=== PATIENT | female | born 1955 | race Caucasian/White ===

== ENCOUNTER 2023-08-15 11:26 | Day surgery (SDC) | payer MEDICARE, OTHER, SELFPAY ==
[2023-08-08 07:41] VITALS: BMI 41.5
[2023-08-15] VITALS (12 sets, daily range): BP systolic 93–131; BP diastolic 55–85; PULSE 59–78; RESP 11–20; TEMP 35.8–36.4; O2SAT 95–99; BMI 41.5
--- NOTE | 2023-08-15 06:00 | DI.RAD.S_ITS ---
PROCEDURE: XR KNEE LT 1TO2V INDICATIONS: left total knee TECHNIQUE: 2 view(s) of the knee acquired. COMPARISON: None. FINDINGS: Bones: Patient is status post knee joint arthroplasty. Hardware components are in expected positions. Visualized bony structures are intact. Soft tissues: Overlying postoperative changes are noted. IMPRESSION: Expected appearance of knee arthroplasty. Dictated by: Senia Galeas M.D. on 08/15/2023 at 16:49 Approved by: Senia Galeas M.D. on 08/15/2023 at 16:49
[2023-08-15] MEDS: LACTATED RINGERS 1,000 ML 42 ML IV (12:15)
[2023-08-15] MEDS: ACETAMINOPHEN 325 MG TABLET 975 MG PO (12:16)
[2023-08-15] MEDS: PREGABALIN 75 MG CAPSULE PO (12:16)
[2023-08-15] MEDS: CELECOXIB 200 MG CAPSULE PO (12:17)
[2023-08-15] MEDS: VANCOMYCIN 1,000 MG/200 ML PIGGYBACK 200 MG IV (12:19)
--- NOTE | 2023-08-15 13:17 | P.OP_ITS ---
Operative Date/Time/Diagnoses Date of procedure: 08/15/23 Time of procedure: 13:20 Pre-op diagnosis: Severe left knee OA Post-op diagnosis: same Procedure & Clinicians Procedure: Left total knee arthroplasty Same procedure as scheduled: Yes Indications: The patient has had progressively worsening left knee pain with radiographic changes consistent with arthritis. Non-operative management has failed and the patient has requested total knee replacement. The risks, benefits and alternatives to surgery were discussed with the patient prior to proceeding. Risks discussed included, but were not limited to, failure to relieve pain, stiffness, infection, nerve damage, deep venous thrombosis, pulmonary embolism, stroke, coma, heart attack, permanent paralysis and , as well as the potential need for eventual revision of the prosthetic. Surgeon: Lisandra Quigley Cyber Legal Advisor: Nitish Vargas Anesthesia Type: General and Spinal Operative Notes Findings: Severe left knee OA, adequate stability, adequate bone Closure Type: primary Specimen(s): none sent Prosthetic devices, grafts, tissues, transplants, or devices: [employer]igley [employer] Nephew frank BCS 2 size 5 femur, size 3 tibia, size 32 by 7.5 patella, +10 poly Estimated Blood Loss (mL): 250 Blood products transfused: none Tourniquet time (min): 73 Procedure in detail: The patient was seen in the pre-operative area, where the patient identified the right knee as the operative site and this was marked with my initials. The patient received pre-operative antibiotics, and was taken to the operating room and placed on the operative table in the supine position. After satisfactory anesthesia, a time clock mechanic out was performed. The right leg was encircled with a tourniquet about the proximal thigh, and the leg was prepared from the toes to the tourniquet with ChloroPrep in the usual fashion and draped through sterile drapes. The leg was elevated and exsanguinated with Eschmark bandage and the tourniquet inflated to 300 mmHg pressure. She had a very large thigh and the tourniquet was noted to be inflating during surgery and so we opened the Aquamantys in order to provide adequate hemostasis especially as he knew she would need blood thinners preoperatively due to her prior history of a DVT and PE. A PA was used during the procedure and was essential for intraoperative retraction and positioning. Patient had morbid obesity and required significant assistance for safe implantation of the components. The knee was approached through an approximately 18 cm incision centered over the patella and carried into the knee through a medial parapatellar arthrotomy. A portion of the medial and lateral meniscus was resected. Soft tissue was carefully mobilized around the patella the patella was measured with a caliper. Bone was resected from the patella and the patellar height was reconstituted with up an appropriate sized patellar component. A cover was then placed on the patella. A small amount of additional medial and lateral meniscus was resected. The distal femur was cut at 5?. A [+2] cut was used. It looked like an appropriate distal femoral cut and the cut was made without difficulty. An extramedullary guide was used for the tibial cut. 10 mm was resected off the least affected side.The tibia was prepared. The rotation was assessed. The patient was placed in extension residual medial and lateral meniscus as well as any residual bone was carefully resected. [No] additional tibia was resected. Hemostasis was achieved especially posteriorly. There was a rent in the posterior aspect of the capsule on the lateral side. Additional local was injected into the posterior capsule. I also used the Aquamantys just to make sure that we had adequate hemostasis posteriorly. There was no bleeding. The extension gap was assessed and additional releases for gap balancing were performed as necessary. It was checked with the gap entry level administrative assistant. The femoral component was trial was placed and the notch was finished. The rotation was assessed and the appropriate size femoral guide was placed on the distal femur and finishing cuts were made. There was no evidence of notching. The anterior, posterior and chamfer cuts were then made. The posterior osteophytes and soft tissues were then removed. The posterior capsule was injected with part of a mixture of 60 ml 0.25% Marcaine mixed with 20 ml Exparel for post operative pain control. The remainder of this mixture was injected into the capsule and subcutaneous tissues during cement curing.l tibial and femoral components were then placed and the knee placed through a range of motion. Range of motion was [0-130], with good stability throughout the range. The trials were then removed, and the tibia was finished. The bone was prepared with pulsatile lavage, and dried with a sponge. Cement was applied and the final prosthetics placed. Excess cement was removed during and after cement curing. A brief Betadine soak was performed. After confirming there was no extruded cement posteriorly, the final tibial insert was placed. The knee was copiously irrigated and the tourniquet deflated. There was no excessive bleeding when the tourniquet was deflated. I did place TXA in the knee which was my preoperative plan in order to make sure there was good hemostasis. Hemostasis was obtained with the [Aquamantys system]. The capsule was closed with interrupted nonabsorbable suture. The subcutaneous layer was closed with barbed sutures, and the skin with a running 3-0 V-Lock suture and skin chris. A leandro dressing was applied and the patient was taken to recovery having tolerated the procedure well. Took intraoperative films at the end of the procedure in order to definitively confirm the needle count. Showed acceptable alignment of the prosthesis and no evidence of a needle. The needle was found on the floor. Complications: none Post-operative Condition: stable Disposition: Acute Care Plan for aftercare: The patient will be maintained on a standard total knee replacement protocol with weight bearing as tolerated. The patient will receive Xarelto and sequential compression devices for DVT prophylaxis. The patient will be discharged home when safe for the home environment.
--- NOTE | 2023-08-15 13:17 | PM.PREOP ---
Pre-operative Note Interval Note History & Physical reviewed/Exam performed by Physician: Yes Changes to H&P: No
[2023-08-15] MEDS: CEFAZOLIN 2 GM/100 ML PREMIX 100 ML IV ×2 (13:45→22:51)
[2023-08-15] MEDS: BUPIVACAINE LIPOSOME 266 MG/20 ML VIAL INJ (14:27)
[2023-08-15] MEDS: BUPIVACAINE 0.25% (PF) 60 ML, EPINEPHrine 0.3 MG INJ (14:27)
[2023-08-15] MEDS: TRANEXAMIC ACID 1,000 MG VIAL 1000 MG INJ (14:28)
--- NOTE | 2023-08-15 14:32 | SUR.OPER ---
Supine on padded OR bed. Pillow under head, arms secured on padded armboards <90 degree abduction. Safety belt across torso. Non-operative leg secured with tape over blanket over lower leg. Operative leg secured in DeMayo positioner. Foam padded brace at thigh of operative leg.
[2023-08-15] MEDS: OXYCODONE IR 5 MG TABLET PO ×2 (16:20→16:54)
[2023-08-15] MEDS: LACTATED RINGERS 1,000 ML 100 ML IV (16:54)
[2023-08-15] MEDS: ACETAMINOPHEN 325 MG TABLET 650 MG PO (16:55)
--- NOTE | 2023-08-15 19:02 | PC.NURSE ---
Patient arrived from PACU at 1650 A&OX4. VSS, afebrile. She has +CMS to BLE's. 1+edema to LLE. She has CRISTAL wrap c/d/i and leandro dressing is flashing green light. She reports pain 9-10/10 pain and is given additional oxycodone 5 mg. She denies appetite but is able to take sips of apple juice and water. IVF LR at 100 ml /hr. SCD to RLE. She is due to void this evening at 10 pm. at bedside. MD Quigley notified of patient unrelieved pain and received new orders for toradol IV x1. Bed alarm on, call light and belongings in reach, frequent rounding, q 2 hour repositioning.
[2023-08-15] MEDS: ATORVASTATIN 20 MG TABLET 10 MG PO (20:26)
[2023-08-15] MEDS: DOCUSATE 100 MG CAPSULE PO (20:26)
[2023-08-15] MEDS: ASPIRIN EC 81 MG TABLET PO (20:26)
[2023-08-15] MEDS: KETOROLAC 30 MG/ML VIAL 15 MG IV (20:27)
[2023-08-15] MEDS: OXYCODONE IR 10 MG TABLET PO (20:27)
[2023-08-16] MEDS: ACETAMINOPHEN 325 MG TABLET 650 MG PO ×3 (00:01→14:30)
[2023-08-16] MEDS: LACTATED RINGERS 1,000 ML 100 ML IV (00:22)
[2023-08-16 05:39] VITALS: BP 97/56; PULSE 72; RESP 20; TEMP 36.1; O2SAT 97
[2023-08-16] MEDS: CEFAZOLIN 2 GM/100 ML PREMIX 100 ML IV (05:51)
[2023-08-16] MEDS: LEVOTHYROXINE 137 MCG TABLET PO (06:46)
[2023-08-16] MEDS: PANTOPRAZOLE DR 20 MG TABLET PO (06:46)
[2023-08-16 07:12] LABS: Hematocrit 34.6 % (36-46); Hemoglobin 11.6 g/dL (12.0-16.0)
--- NOTE | 2023-08-16 08:55 | PM.DS.1 ---
History of Present Illness History of Present Illness Date Patient Seen: 08/16/23 Time Patient Seen: 08:00 Chief complaint: Right Total Knee Arthroplasty 08/15 Discharge Providers Provider Date of admission: 08/15/2023 Discharge Date: 08/16/23 Primary care physician: EULALIA Plummer Consults: 08/15/23 06:00 Consult to Anesthesiology Routine Comment: Consulting Provider: Anesthesiologist Reason for consultation: Regional block for post operative pain control 08/15/23 16:40 Consult to Discharge Planning Routine Comment: Consult to Occupational Therapy Evaluate & Treat Comment: Physician Instructions: Evaluate and treat Consult to Physical Therapy Evaluate & Treat Comment: Physician Instructions: postop TKA protocol Discharge provider: James Coombs PA-C Summary Hospital Course Discharge Diagnosis: Status post Left Total Knee Arthroplasty Hospital Course: Left total knee arthroplasty Same procedure as scheduled: Yes Indications: The patient has had progressively worsening left knee pain with radiographic changes consistent with arthritis. Non-operative management has failed and the patient has requested total knee replacement. The risks, benefits and alternatives to surgery were discussed with the patient prior to proceeding. Risks discussed included, but were not limited to, failure to relieve pain, stiffness, infection, nerve damage, deep venous thrombosis, pulmonary embolism, stroke, coma, heart attack, permanent paralysis and , as well as the potential need for eventual revision of the prosthetic. Surgeon: Lisandra Quigley Laboratory Sampler: Nitish Vargas Anesthesia Type: General and Spinal Operative Notes Findings: Severe left knee OA, adequate stability, adequate bone Closure Type: primary Specimen(s): none sent Prosthetic devices, grafts, tissues, transplants, or devices: [employer]hew journey BCS 2 size 5 femur, size 3 tibia, size 32 by 7.5 patella, +10 poly Estimated Blood Loss (mL): 250 Blood products transfused: none Tourniquet time (min): 73 Procedure in detail: The patient was seen in the pre-operative area, where the patient identified the right knee as the operative site and this was marked with my initials. The patient received pre-operative antibiotics, and was taken to the operating room and placed on the operative table in the supine position. After satisfactory anesthesia, a [employer] multimedia sales out was performed. The right leg was encircled with a tourniquet about the proximal thigh, and the leg was prepared from the toes to the tourniquet with ChloroPrep in the usual fashion and draped through sterile drapes. The leg was elevated and exsanguinated with Eschmark bandage and the tourniquet inflated to 300 mmHg pressure. She had a very large thigh and the tourniquet was noted to be inflating during surgery and so we opened the Aquamantys in order to provide adequate hemostasis especially as he knew she would need blood thinners preoperatively due to her prior history of a DVT and PE. A PA was used during the procedure and was essential for intraoperative retraction and positioning. Patient had morbid obesity and required significant assistance for safe implantation of the components. The knee was approached through an approximately 18 cm incision centered over the patella and carried into the knee through a medial parapatellar arthrotomy. A portion of the medial and lateral meniscus was resected. Soft tissue was carefully mobilized around the patella the patella was measured with a caliper. Bone was resected from the patella and the patellar height was reconstituted with up an appropriate sized patellar component. A cover was then placed on the patella. A small amount of additional medial and lateral meniscus was resected. The distal femur was cut at 5?. A [+2] cut was used. It looked like an appropriate distal femoral cut and the cut was made without difficulty. An extramedullary guide was used for the tibial cut. 10 mm was resected off the least affected side.The tibia was prepared. The rotation was assessed. The patient was placed in extension residual medial and lateral meniscus as well as any residual bone was carefully resected. [No] additional tibia was resected. Hemostasis was achieved especially posteriorly. There was a rent in the posterior aspect of the capsule on the lateral side. Additional local was injected into the posterior capsule. I also used the Aquamantys just to make sure that we had adequate hemostasis posteriorly. There was no bleeding. The extension gap was assessed and additional releases for gap balancing were performed as necessary. It was checked with the gap coding auditor. The femoral component was trial was placed and the notch was finished. The rotation was assessed and the appropriate size femoral guide was placed on the distal femur and finishing cuts were made. There was no evidence of notching. The anterior, posterior and chamfer cuts were then made. The posterior osteophytes and soft tissues were then removed. The posterior capsule was injected with part of a mixture of 60 ml 0.25% Marcaine mixed with 20 ml Exparel for post operative pain control. The remainder of this mixture was injected into the capsule and subcutaneous tissues during cement curing.l tibial and femoral components were then placed and the knee placed through a range of motion. Range of motion was [0-130], with good stability throughout the range. The trials were then removed, and the tibia was finished. The bone was prepared with pulsatile lavage, and dried with a sponge. Cement was applied and the final prosthetics placed. Excess cement was removed during and after cement curing. A brief Betadine soak was performed. After confirming there was no extruded cement posteriorly, the final tibial insert was placed. The knee was copiously irrigated and the tourniquet deflated. There was no excessive bleeding when the tourniquet was deflated. I did place TXA in the knee which was my preoperative plan in order to make sure there was good hemostasis. Hemostasis was obtained with the [Aquamantys system]. The capsule was closed with interrupted nonabsorbable suture. The subcutaneous layer was closed with barbed sutures, and the skin with a running 3-0 V-Lock suture and skin chris. A leandro dressing was applied and the patient was taken to recovery having tolerated the procedure well. Took intraoperative films at the end of the procedure in order to definitively confirm the needle count. Showed acceptable alignment of the prosthesis and no evidence of a needle. The needle was found on the floor. Complications: none Status at Discharge Cognitive/behavioral status at discharge: oriented Functional status at discharge: uses cane/walker Overall status at discharge: patient is back to baseline Exam Vital Signs (past 8 hours): - 08/16/23 05:39 Temperature 96.9 F L Pulse Rate 72 Respiratory Rate 20 Blood Pressure 97/56 L Pulse Oximetry 97 Oxygen Flow Rate 0 Oxygen Delivery Method CPAP Oxygen Flow Rate 0 Narrative Exam Narrative: LLE: Dressing is clean and dry. No edema noted. Sensation grossly intact to light touch. Able to dorsal and plantar flex at the ankle against resistance. No pain to compression along posterior calf and thigh. Const General: cooperative, healthy appearing and comfortable Orientation: alert and oriented x3 Resp Effort & Inspection: normal respiratory effort and able to speak in complete sentences Objective Labs 08/16/23 06:52 Labs: Laboratory Results - last 24 hr 08/16/23 06:52 Hgb 11.6 L Hct 34.6 L [facility] Medical History (Updated 08/07/23 @ 13:26 by Julita Noguera RN) History of COVID-19 (~2021) Pulmonary embolism (2014) Panic attacks Anxiety Depression Easy bruisability Osteoarthritis Hypothyroidism Diverticulosis GERD (gastroesophageal reflux disease) HLD (hyperlipidemia) HTN (hypertension) CASTILLO on CPAP Surgical History (Updated 08/07/23 @ 13:14 by Julita Noguera RN) Hx of bilateral breast reduction surgery (2021) Hx of discectomy (~1983) History of partial hysterectomy Social History household members: spouse Smoking Status: Never smoker alcohol intake: current Discharge Assessment & Plan Assessment and Plan Assessment: Status Post Left Knee Total Arthroplasty Plan of Treatment: Patient is to be discharged home pending PT evaluation. The patient will be maintained on a standard total knee replacement protocol with weight bearing as tolerated Already received post op prescriptions of hydrocodone/APAP 5/325 #60, Xarelto 10mg qday #30, APAP and Colace, use as directed. Attended PT as scheduled Follow up in clinic in 2 weeks for post-surgery evaluation Discharge Plan Discharge Plan Patient Disposition: Home Discharge orders & Medications Discharge Orders: Discharge (Order); Ordered 08/16/23 Ordered By: James Coombs Prescriptions: Continued levothyroxine 137 mcg Tablet 137 mcg PO DAILY atorvastatin 10 mg Tablet 10 mg PO BEDTIME lisinopril-hydrochlorothiazide 20-12.5 mg Tablet 1 tab PO DAILY citalopram 10 mg Tablet 10 mg PO DAILY acetaminophen 650 mg Tablet Extended Release 650 mg PO DAILY PRN (Reason: Pain) torsemide 5 mg Tablet 5 mg PO DAILY omeprazole 20 mg Capsule,Delayed Release(Dr/Ec) 20 mg PO DAILY bupropion HCl 150 mg Tablet Extended Release 24 Hr 150 mg PO QAM Discontinued Aspir-81 81 mg PO QAM Medication counseling provided by Pharmacist: Yes Follow up/Referrals: Elijah Orozco ARNP [Primary Care Provider] - Diet/Activity/Treatments Diet: Diet as Tolerated Activity: Weightbearing as tolerated with assistive device Cold/Heat Therapy: Apply cold pack over wound site as needed for pain relief and to reduce swelling. Skin/Wound/Dressing Care Report to your healthcare provider any signs of infection, such as:: chills, fever, night sweats, unusual drainage and unusual redness Dressing: Keep dressing clean and dry. If dressing is distrubed or dirty, change dressing with gauze wrap until follow up in the clinic. Visit Report/Discharge Packet Instructions: DI for Knee Replacement, DI for Prescription Opioid Use Stand Alone Forms: Patient Portal/API, Surgery Discharge Discharge Data Primary Care Provider: Elijah Orozco Attending Provider: Lisandra Quigley
[2023-08-16 09:00] VITALS: BP 117/68; PULSE 75; RESP 16; TEMP 36.9; O2SAT 98
[2023-08-16] MEDS: DOCUSATE 100 MG CAPSULE PO (09:16)
[2023-08-16] MEDS: CITALOPRAM 10 MG TABLET PO (09:16)
[2023-08-16] MEDS: hydroCHLOROthiazide 25 MG TABLET 12.5 MG PO (09:16)
[2023-08-16] MEDS: RIVAROXABAN 10 MG TABLET PO (09:16)
[2023-08-16] MEDS: OXYCODONE IR 5 MG TABLET PO (09:17)
[2023-08-16] MEDS: buPROPion XL 150 MG TAB PO (09:17)
[2023-08-16] MEDS: lisinopriL 20 MG TABLET PO (09:17)
[2023-08-16] MEDS: ASPIRIN EC 81 MG TABLET PO (09:18)
--- NOTE | 2023-08-16 09:20 | PT.IIE ---
Current Diagnoses Unilateral primary osteoarthritis, right knee (08/15/23) Surgery Performed Operation Date: 08/15/23 13:45 Actual Procedures p Total Knee Arthroplasty(Left) - Lisandra Quigley MD Surgical History (Last Updated 08/07/23 @ 13:14 by Julita Noguera, RN) History of partial hysterectomy Hx of bilateral breast reduction surgery (2021) Hx of discectomy (~1983) Medical History (Last Updated 08/07/23 @ 13:26 by Julita Noguera RN) Anxiety Depression Diverticulosis Easy bruisability GERD (gastroesophageal reflux disease) History of COVID-19 (~2021) HLD (hyperlipidemia) HTN (hypertension) Hypothyroidism CASTILLO on CPAP Osteoarthritis Panic attacks Pulmonary embolism (2014) Physical Therapy Inpatient Evaluation/Re-Eval M1 PT/OT-IP Prior Functional Status Start: 08/16/23 12:47 Freq: NEEDED Status: Active Protocol: Document 08/16/23 09:20 AB (Rec: 08/16/23 13:03 [email or web address]) Medical Review Prior Functional Status Medical History Reviewed Yes Communication able to make needs known Mobility and Gait pt stated that she was modified independent with all mobilities and ambulation using a SPC Activities of Daily Living and IADL's per OT note: Pt had difficulty to alvarado her socks and only able to stand to do IADl needs for 1/2 hour at a times before having to sit down. Social History Household Members spouse Living Arrangements House Number of Floors (Floors) One Floor Number of Stairs To Enter/Railing? 5 steps to enter with R rail ascending Home Environment Standard Height Toilet,Walk in Shower Home Equipment Front Wheel Walker,Straight Cane,Shower Seat without Backrest,Hand Held Shower,Long Handled Shoe Horn,Grab Bars In Shower Additional Social History Comment pt has a toilet safety frame M2 PT-IP Current Condition Start: 08/16/23 12:47 Freq: NEEDED Status: Active Protocol: Document 08/16/23 09:20 AB (Rec: 08/16/23 13:03 [email or web address]) Physical Therapy Current Condition Current Condition Evaluation Date 08/16/23 Treatment Diagnosis s/p L TKA; difficulty in walking Onset Date 08/15/23 M3 PT-IP Subjective Start: 08/16/23 12:47 Freq: NEEDED Status: Active Protocol: Document 08/16/23 09:20 AB (Rec: 08/16/23 13:03 AB [email or web address]) Subjective Physical Therapy Visit Type Type Initial Evaluation Visit Start Time 09:20 Visit Stop Time 10:40 Total Visit Minutes 80 Number of SOURCING COORDINATOR Visits 0 Physical Therapy Visit Comments Patient Comments agreeable to do PT Therapy Pain Assessment Location Left Knee Intensity 2 Scale Used increases to 5/10 with movement Pain Behaviors Guarding Pain Management Techniques Apply Cold,Distraction, Modification of Treatment,Re- positioning,Timing of Activity with Medications M4 PT-IP Mobility and Gait Start: 08/16/23 12:47 Freq: NEEDED Status: Active Protocol: Document 08/16/23 09:20 AB (Rec: 08/16/23 13:03 [email or web address]) PT-Bed Mobility Assessment Supine to Sit Supine to Sit Standby Assistance PT-Transfer Assessment Sit to and From Stand Sit to and from Stand Contact Guard Assistance, Minimal Assistance,1 Person Assistance,Use of Upper Extremities Equipment Transfer Assistive Device Gait Belt,Front Wheeled Walker Orthotic/Prosthetic Devices or Brace: No Transfers Transfer Destination Toilet Transfer Technique ambulated Transfer Ability Level of Assist Contact Guard Assistance,1 Person Assistance,Use of Upper Extremities Comments Mobility Comments pt supine in bed and agreeable to do PT. BP: 103/55. completed supine to sit SBA. able to sit on EOB SBA. pt requested to use thet oilet. completed sit to stand CGA to min A and cues for techniques and ambulated to the toilet using FWW CGA. required min A and max cues for controlled descent to the toilet. completed toileting SBA. sit to stand from the toilet using grab bar min A and ambulated towards the sink using FWW CGA . able to maintain standing using FWW CGA for support while completing toileting. ambulated to sit on the chair CGA using FWW. pt educated on sit<>stand techniques. completed sit <>stand from the chair x 2 CGA. pt ambulated towards the stairs using FWW ~ 75 ft CGA. educated pt on stair climbing and pt completed up/down steps holding on to R rail with B hands min A and max cues. c/o increase knee pain. pt needing cues with all tasks and needs increase time to complete all tasks. pt also presents with truncal tremors/ shaking and stated that she has it since she was young. assisted pt back to her room. pt ambulated from the w/c to the chair using FWW CGA. positioned pt on the chair. call light and table placed within reach. caregiver training set up for this afternoon at 1 pm. Gait Assessment Gait Gait Assistance Required: Contact Guard Assist,1 Person Assist Distance (Feet) 75 Able to Maintain Weight Bearing Status Yes During Gait Assistive Devices Assistive Device Gait Belt,Front Wheeled Walker Orthotic/Prosthetic Devices or Brace: No Gait Deviations General Gait Pattern Antalgic,Decreased Stride Length,Decreased Feet Clearance Factors Limiting Gait Function Factors Limiting Gait Function Decreased Activity Tolerance, Decreased Strength,Difficulty Following Directions,Limited Range of Motion,Pain,Poor Balance,Poor Safety Awareness Stair Climbing Assessment Evaluation Level of Assist On Stairs Minimal Assistance Devices Stair Climbing Assistive Devices Right Railing Technique/Endurance Stair Climbing Direction Ascend and Descend Stair Climbing Technique Step to Step Number of Steps Climbed 3 Query Text: Stair Climbing Set # Repetitions (reps) 1 PT-Balance Assessment Sitting Balance and Reactions Static Sitting Balance Ability Normal Dynamic Sitting Balance Ability Good Standing Balance and Reactions Static Standing Balance Ability Fair Dynamic Standing Balance Ability Fair Device Used FWW M5 PT-IP Objective Assessments Start: 08/16/23 12:47 Freq: NEEDED Status: Active Protocol: Document 08/16/23 09:20 AB (Rec: 08/16/23 13:03 [email or web address]) Orientation Orientation/Cognition Level of Alertness Alert Orientation Name,Situation Language Function Ability Hard of Hearing Safety Awareness Decreased Safety Awareness Memory Description Short Term Impaired Gross Range of Motion Lower Extremity ROM Assessment Left Impaired Impairments L knee flexion: ~ 50 deg Strength Lower Extremity Strength Assessment Left Impaired Hip 4-/5 Knee 3+/5 Sensation Assessment Sensation Gross Sensation WNL Muscle Tone Muscle Tone WNL Yes M6 PT-IP Treatment Start: 08/16/23 12:47 Freq: NEEDED Status: Active Protocol: Document 08/16/23 09:20 AB (Rec: 08/16/23 13:03 [email or web address]) Physical Therapy Treatment Education Education Provided Precautions,Weight Bearing Status,Post-Op Packet,Safety M7 PT-IP Assessment and Plan Start: 08/16/23 12:47 Freq: NEEDED Status: Active Protocol: Document 08/16/23 09:20 AB (Rec: 08/16/23 13:03 AB [email or web address]) PT Summary Assessment and Plan Potential Rehabilitation Potential Fair Status of Condition at Evaluation Evolving Summary Impairments Pain,ROM,Strength,Balance, Coordination,Sensation,Tone, Cognition,Bed Mobility, Transfers,Gait,Activity Tolerance Assessment Summary pt is a 68 y/o F who underwent L TKA POD 1. pt requiring CGA to min A with mobility bur requiring cues with all tasks for techniques and safety. pt plans to go home and spouse to assist. Caregiver training set up this afternoon at 1pm. will continue to assess progress. pt stated that she has outpt PT set up. Goals Bed Mobility Goal Independent Transfer Goal Independent,Front Wheeled Walker Gait Goal Independent,Front Wheel Walker Gait Distance 100 Other Goals up/down 5 steps R rails SBA Days to Meet Goals 5 Frequency of Treatment Frequency Of Treatment Twice a Day Treatment Plan Physical Therapy Treatment Plan Bed Mobility Training,Transfer Training,Gait Training, Therapeutic Exercise,Balance Retraining,Post Op Education, Discharge Planning,Hot or Cold Pack,Neuromuscular Re-ed, Coordination Retraining,Manual Therapy Weight Bearing Status Weight Bearing Status Weight Bear as Tolerated Allowed Weight Bearing Amount (enter % LLE WBAT or #) (%) Recommendations To Nursing Amount of Assist Needed 1 Person Assist Discharge Recommendations PT Discharge Recommendations Home with Assistance, Outpatient PT Transportation Needs at Discharge Private Vehicle
[2023-08-16] MEDS: TORSEMIDE 10 MG TABLET 5 MG PO (09:29)
--- NOTE | 2023-08-16 10:16 | CM.DANOTE ---
Initial DCP Assessment Note Pt is a 68 yo female, resident of [place], now POD#1 from Rt knee surgery by Dr Quigley PCP: Elijah Orozco Payer: JONNY/Francesco Reviewed chart, pt discussed in multidisciplinary rounds this morning. Therapy working with patient this morning, caregiver training scheduled with spouse this afternoon. pt has planned for home, DC order from Ortho has already been initiated this morning. Patient independent at her baseline and denies needs at this time. No barriers identified at this time to patient's safe discharge home w/family to assist; close outpatient f/u recommended. CM team will plan to follow closely today in case any DC needs or concerns arise. BARBARA Weems Discharge Planning/Care Management CM Discharge Assessment Start: 08/16/23 10:11 Freq: Status: Active Protocol: Document 08/16/23 10:11 STAN (Rec: 08/16/23 10:16 STAN [id number]) Discharge Planning Assessment Assigned Director Of Regional Sales BARBARA Borden DPOA/Assigned Designee Name Conrado Hirsch, spouse Contact Information [phone] Advance Directives? Yes Advance Directives on File No History Provided By Patient,Medical Record Prior Living Arrangements House Household Members spouse Type of transporation used prior to Drives own vehicle admit Independent with ADL's Yes Is patient alert and oriented? Yes Patient/Family Preference OP PT Therapy Barriers to Discharge No Comment pending caregiver training with sp this afternoon Discharge Plan Home Transportation Arrangement Family Referrals Initiated None needed
--- NOTE | 2023-08-16 11:23 | OT.IP.EVAL ---
Addendum entered and electronically signed by Alexus Jeronimo OT 08/16/23 12:26: Esign to Dr. Quigley Original Note: Current Diagnoses Unilateral primary osteoarthritis, right knee (08/15/23) Surgery Performed Operation Date: 08/15/23 13:45 Actual Procedures p Total Knee Arthroplasty(Left) - Lisandra Quigley MD Past Medical History (Last Updated 08/07/23 @ 13:26 by Julita Noguera, RN) Anxiety Depression Diverticulosis Easy bruisability GERD (gastroesophageal reflux disease) History of COVID-19 (~2021) HLD (hyperlipidemia) HTN (hypertension) Hypothyroidism CASTILLO on CPAP Osteoarthritis Panic attacks Pulmonary embolism (2014) Surgical History (Last Updated 08/07/23 @ 13:14 by Julita Noguera RN) History of partial hysterectomy Hx of bilateral breast reduction surgery (2021) Hx of discectomy (~1983) Occupational Therapy Inpatient Evaluation/Re-Eval M1 PT/OT-IP Prior Functional Status Start: 08/16/23 12:07 Freq: NEEDED Status: Active Protocol: Document 08/16/23 11: [facility] (Rec: 08/16/23 12:21 [facility] [id number]) Medical Review Prior Functional Status Communication Independent Activities of Daily Living and IADL's Pt had difficulty to alvarado her socks and only able to stand to do IADl needs for 1/2 hour at a times before having to sit down to rest for an hour. Prior Functional Level (Other details) Pt states her to be able to assist her at home. Social History Household Members spouse Living Arrangements House Number of Floors (Floors) One Floor Number of Stairs To Enter/Railing? 5 steps Home Environment Standard Height Toilet,Walk in Shower Home Equipment Front Wheel Walker,Straight Cane,Shower Seat without Backrest,Hand Held Shower,Long Handled Shoe Horn,Grab Bars In Shower M2 OT-IP Current Condition Start: 08/16/23 12:07 Freq: Status: Active Protocol: Document 08/16/23 11: [facility] (Rec: 08/16/23 12:21 [facility] [id number]) Occupational Therapy Current Condition Current Condition Evaluation Date 08/16/23 Treatment Diagnosis S/P L TKA Diagnosis Onset Date 08/15/23 M3 OT- IP Subjective and Pain Start: 08/16/23 12:07 Freq: Status: Active Protocol: Document 08/16/23 11:23 [facility] (Rec: 08/16/23 12:21 [facility] [id number]) OT- Subjective Occupational Therapy Visit Type Type Initial Evaluation Visit Start Time 10:45 Visit Stop Time 11:23 Total Visit Minutes 38 Occupational Therapy Visit Comments Patient Comments Pt agreed to get up but in too much pain and tired for just doing PT to shower at this time. Patient/Caregiver Goals To go home. OT Pain Assessment Pain When Pain Assessed At Rest Pain Present Pain Present Pain Reported Location Left Knee Intensity 8 Scale Used Numeric (0 - 10) M4 OT- IP ADL's Start: 08/16/23 12:07 Freq: Status: Active Protocol: Document 08/16/23 11:23 [facility] (Rec: 08/16/23 12:21 [facility] [id number]) OT YWM-Tmyn-Daucyei General Evaluation Self-Feeding Ability Independent OT ADL-Grooming General Evaluation Grooming Ability Standby Assistance Areas Needing Assistance Retrieving/Set-up of Grooming Items Comments OT Grooming Comments Pt able to stand with the FWW at the sink for grooming needs. OT ADL-Oral Care General Eval Oral Care Ability Standby Assistance Areas of Assistance Retrieving/Set-Up of Items Comments Oral Care Comments While standing with FWW. OT ADL-Dressing General Eval Lower Body Dressing Ability Maximum Assistance Areas Needing Assistance Socks Comments OT Dressing Comments Able to educate of LB dressing equipment and to dress the left side first and take out last to increase ease for dressing needs. Able to practice use of lens edger and sock aid. Pt states to slat pickler some LB dressing equipment. OT ADL-Toileting Comments OT Toileting Comments Pt not having to go at this time. Spoke states her bathroom is close enough at home to use. Pt states already bought pads to use at night. OT ADL-Bathing Comments OT Bathing Comments Pt too tired to shower and in 8/10 pain , therefore pt just wanting to get back to bed to rest. M5 OT- IP IADL's Start: 08/16/23 12:07 Freq: Status: Active Protocol: Document 08/16/23 11:23 [facility] (Rec: 08/16/23 12:21 [facility] [id number]) OT-Instrumental Activities of Daily Living Deficits IADL Deficits Identified Deficits Home Safety Awareness Awareness of Need for Assistance at Home Decreased Awareness Ability to Problem Solve Emergency Able to Problem Solve Situations Medication Management Medication Management No Deficits Identified Money Management Money Management No Deficits Identified, Caregiver Provides Supervision Money Management Comments Pt states her can assist if needed. Meal Preparation Meal Preparation Caregiver Provides Assist Superintendent Operations Division Superintendent Operations Division Caregiver Provides Assist M6 OT- IP Functional Cognition Start: 08/16/23 12:07 Freq: Status: Active Protocol: Document 08/16/23 11: [facility] (Rec: 08/16/23 12:21 [facility] [id number]) Cognitive Factors Limiting Selfcare Function Cognitive Ability Level of Alertness Alert Patient Orientation Name,Place,Situation Attention Span Ability Capable of Focused Attention, Capable of Sustained Attention Ability to Follow Commands Able to Follow One Step Commands Cognitive Comments Cognitive Assessment Comments Pt needing initial cues for FWW safety. Pt able to follow commands for ADL and mobility needs. OT- Vision and Hearing OT- Hearing Assessment OT- Hearing Assessment WFL OT- Vision Assessment Visual Acuity Glasses All The Time M7 OT- IP Mobility and Balance Start: 08/16/23 12:07 Freq: Status: Active Protocol: Document 08/16/23 [facility] (Rec: 08/16/23 12:21 [facility] [id number]) OT- Bed Mobility Assessment Sit to Supine Sit to Supine Assist Contact Guard Assistance OT-Transfer Assessment Sit to and From Stand Sit to and from Stand Minimal Assistance Transfers Transfer Ability Standby Assistance,Contact Guard Assistance Technique Transfer Destination Bed,Chair Transfer Technique Stand Step Pivot Devices Transfer Assistive Devices Gait Belt,Front Wheeled Walker Comments Mobility Comments ELIZABETH to stand from the recliner and CGA/SBA with FWW to walk to the sink and back to the bed. BP 111/60 supine and 115/54 sitting. CGA for LLE to help get back into bed. OT- Balance Assessment Sitting Balance and Reactions Static Sitting Balance Ability Normal Dynamic Sitting Balance Ability Good Standing Balance and Reactions Static Standing Balance Ability Good Dynamic Standing Balance Ability Fair M9 OT- IP Assessment and Plan Start: 08/16/23 12:07 Freq: Status: Active Protocol: Document 08/16/23: [facility] (Rec: 08/16/23 12:21 [facility] [id number]) OT Summary Assessment and Plan Potential Rehabilitation Potential Good Analytic Complexity at Evaluation Low Summary OT Impairments Pain,Strength,Balance, Functional Mobility,Dressing, Toileting,Bathing,Toilet Transfers,Shower Transfers Progress Towards Goals Progressing Toward Goals Assessment Summary Pt Low complexity and main barriers are steps, pain and will benefit from getting LB dressing equipment or to assist for dressing and showering needs. Pt to go home when medically stable and her to assist and outpt PT. Goals Grooming Goal Independent Dressing Goal Independent,Concrete Mixing Truck Driver,Sock Aid Toileting Goal Independent Bathing Goal Independent Toilet Transfer Goal Independent Shower Transfer Goal Independent Days to Meet Goals 7 Frequency of Treatment Frequency Of Treatment Once a Day Treatment Plan OT Treatment Plan ADL Training,Functional Mobility,Patient/Family Education,Discharge Planning Discharge Recommendations OT Discharge Recommendations Home with Assistance, Outpatient PT Home Equipment Needs LB dressing equipment Transportation Needs at Discharge Private Vehicle
[2023-08-16] MEDS: OXYCODONE IR 10 MG TABLET PO ×2 (11:28→14:31)
[2023-08-16 13:00] VITALS: BP 116/62; PULSE 77; RESP 16; TEMP 36.9; O2SAT 98
--- NOTE | 2023-08-16 13:10 | PT.IPTN ---
Current Diagnoses Unilateral primary osteoarthritis, right knee (08/15/23) Surgery Performed Operation Date: 08/15/23 13:45 Actual Procedures p Total Knee Arthroplasty(Left) - Lisandra Quigley MD Physical Therapy Treatment Note M2 PT-IP Current Condition Start: 08/16/23 12:47 Freq: NEEDED Status: Active Protocol: Document 08/16/23 09:20 AB (Rec: 08/16/23 13:03 AB [id number]) Physical Therapy Current Condition Current Condition Evaluation Date 08/16/23 Treatment Diagnosis s/p L TKA; difficulty in walking Onset Date 08/15/23 M3 PT-IP Subjective Start: 08/16/23 12:47 Freq: NEEDED Status: Active Protocol: Document 08/16/23 13:42 TS (Rec: 08/16/23 13:59 TS [id number]) Subjective Physical Therapy Visit Type Type Treatment Note Visit Start Time 13:10 Visit Stop Time 13:39 Total Visit Minutes 29 Notes Spouse present for caregiver training. Number of BRAND ENGINEER Visits 1 Physical Therapy Visit Comments Patient Comments Pt found resting in bed, spouse in room, pt agreeable to PT. Therapy Pain Assessment Pain When Pain Assessed During Mobility Pain Present Pain Present Pain Reported M4 PT-IP Mobility and Gait Start: 08/16/23 12:47 Freq: NEEDED Status: Active Protocol: Document 08/16/23 13:42 TS (Rec: 08/16/23 13:59 TS [id number]) PT-Bed Mobility Assessment Supine to Sit Supine to Sit Standby Assistance Scooting Scooting to Edge of Bed Standby Assistance PT-Transfer Assessment Sit to and From Stand Sit to and from Stand Contact Guard Assistance,1 Person Assistance,Use of Upper Extremities Equipment Transfer Assistive Device Gait Belt,Front Wheeled Walker Orthotic/Prosthetic Devices or Brace: No Comments Mobility Comments Supine to sit SBA with HOB elevated and handrail assist. Spouse was instructed in and performed donning of gait belt . Sit to stand CGA with FWW, pt demonstrates good carryover of sequencing. She ambulated ~150' CGA/SBA with FWW and slow step to antalgic gait. Pt offloads weight heavily onto arms. She performed stairs x3 ascending/descending CGA from spouse with use of single rail , had no buckling or LOB. Pt ambulated back to room, was left in chair, all needs met, spouse in room, RN notified. Gait Assessment Gait Gait Assistance Required: Contact Guard Assist,1 Person Assist Distance (Feet) 150 Able to Maintain Weight Bearing Status Yes During Gait Assistive Devices Assistive Device Gait Belt,Front Wheeled Walker Orthotic/Prosthetic Devices or Brace: No Gait Deviations General Gait Pattern Antalgic,Decreased Stride Length,Decreased Feet Clearance Factors Limiting Gait Function Factors Limiting Gait Function Decreased Activity Tolerance, Decreased Strength,Difficulty Following Directions,Limited Range of Motion,Pain,Poor Balance,Poor Safety Awareness Comments Gait Comments See mobility comments Stair Climbing Assessment Evaluation Level of Assist On Stairs Contact Guard Assistance,1 Person Assistance Devices Stair Climbing Assistive Devices Right Railing Technique/Endurance Stair Climbing Direction Ascend and Descend Stair Climbing Technique Step to Step Number of Steps Climbed 3 Stair Climbing Set # Repetitions (reps) 1 Comments Stair Climbing Comments See mobility comments. PT-Balance Assessment Sitting Balance and Reactions Static Sitting Balance Ability Normal Dynamic Sitting Balance Ability Good Standing Balance and Reactions Static Standing Balance Ability Fair Dynamic Standing Balance Ability Fair Device Used FWW M5 PT-IP Objective Assessments Start: 08/16/23 12:47 Freq: NEEDED Status: Active Protocol: Document 08/16/23 09:20 AB (Rec: 08/16/23 13:03 AB [id number]) Orientation Orientation/Cognition Level of Alertness Alert Orientation Name,Situation Language Function Ability Hard of Hearing Safety Awareness Decreased Safety Awareness Memory Description Short Term Impaired Gross Range of Motion Lower Extremity ROM Assessment Left Impaired Impairments L knee flexion: ~ 50 deg Strength Lower Extremity Strength Assessment Left Impaired Hip 4-/5 Knee 3+/5 Sensation Assessment Sensation Gross Sensation WNL Muscle Tone Muscle Tone WNL Yes M6 PT-IP Treatment Start: 08/16/23 12:47 Freq: NEEDED Status: Active Protocol: Document 08/16/23 13:42 TS (Rec: 08/16/23 13:59 TS [id number]) Physical Therapy Treatment Education Education Provided Precautions,Weight Bearing Status,Post-Op Packet,Safety M7 PT-IP Assessment and Plan Start: 08/16/23 12:47 Freq: NEEDED Status: Active Protocol: Document 08/16/23 13:42 TS (Rec: 08/16/23 13:59 TS [id number]) PT Summary Assessment and Plan Potential Rehabilitation Potential Fair Summary Impairments Pain,ROM,Strength,Balance, Coordination,Sensation,Tone, Cognition,Bed Mobility, Transfers,Gait,Activity Tolerance Progress Towards Goals Progressing Toward Goals Assessment Summary Megan is progressing well with her mobility this session . She is SBA for supine to sit with HOB elevated. She performed sit to stand CGA from spouse with use of FWW, has good standing balance with no retroleaning. She progressed her gait to ~150' CGA from spouse with use of FWW. She performed stairs x3 CGA from spouse with use of single handrail, had no buckling or LOB. Spouse was instructed in and performed donning of gait belt, sit to stand sequencing, gait training and stairs. PT is recommending return home with assist and outpatient PT. Goals Bed Mobility Goal Independent Transfer Goal Independent,Front Wheeled Walker Gait Goal Independent,Front Wheel Walker Gait Distance 100 Other Goals up/down 5 steps R rails SBA Days to Meet Goals 5 Frequency of Treatment Frequency Of Treatment Twice a Day Treatment Plan Physical Therapy Treatment Plan Bed Mobility Training,Transfer Training,Gait Training, Therapeutic Exercise,Balance Retraining,Post Op Education, Discharge Planning,Hot or Cold Pack,Neuromuscular Re-ed, Coordination Retraining,Manual Therapy Weight Bearing Status Weight Bearing Status Weight Bear as Tolerated Allowed Weight Bearing Amount (enter % LLE WBAT or #) (%) Recommendations To Nursing Amount of Assist Needed 1 Person Assist Discharge Recommendations PT Discharge Recommendations Home with Assistance, Outpatient PT Transportation Needs at Discharge Private Vehicle
--- NOTE | 2023-08-16 16:21 | PC.NURSE ---
Discharge: Pt reporting pain was comfortable this am. Then worked with physical therapy, did take 2 doses of oxy 10mg and then had relief. Was able to void this am several times. Tolerates diet w/out problems. Seen by PT/OT and given instructions and passed. received medical care evaluation specialist training. Seen by PA and received d/c instructions from them. Spouse is very attentive. Reviewed d/c packet. Already has rx, questions answered. No problems voiding. Voiced no concerns at this time.
== END 2023-08-16 14:50 | disposition home or self-care (01) ==
LOC: OR 11:29 → AC 11:31
PROVIDERS: PCP Nurse Practitioner Family; Referring Provider Orthopaedic Surgery; Visit Provider Orthopaedic Surgery
PROC: 0SRD0JZ Replacement of Left Knee Joint with Synthetic Substitute, Open Approach (ICD-10-PCS; CPT 27447; principal; 2023-08-15 13:45)
DX: M17.12 Unilateral primary osteoarthritis, left knee (principal); I10 Essential (primary) hypertension; G47.30 Sleep apnea, unspecified; Z86.718 Personal history of other venous thrombosis and embolism; Z79.01 Long term (current) use of anticoagulants; Z86.711 Personal history of pulmonary embolism
CPT/HCPCS: 27447; 36415; 73560; 85014; 85018; 97116; 97162; 97165; 97530; 97535; C1776; C9290; J0171; J0690; J1100; J1885; J2405; J2704

== ENCOUNTER 2023-12-21 08:24 | Day surgery (SDC) | payer MEDICARE, OTHER, SELFPAY ==
[2023-08-15 16:40] VITALS: BMI 41.5
[2023-12-14 09:33] VITALS: BMI 40.6
[2023-12-21] VITALS (12 sets, daily range): BP systolic 110–150; BP diastolic 61–85; PULSE 72–887; RESP 12–16; TEMP 36.2–37.2; O2SAT 80–99; BMI 40.6; BMI 43.5
--- NOTE | 2023-12-21 06:00 | DI.RAD.S_ITS ---
PROCEDURE: XR KNEE RT 1TO2V INDICATIONS: right TKA TECHNIQUE: 2 view(s) of the knee acquired. COMPARISON: [facility], CR, XR KNEE LT 1TO2V, 08/15/2023, 16:05. [facility], CR, XR KNEE 4+ VIEWS RIGHT, 11/22/2023, 13:58. FINDINGS: Bones: Patient is status post knee joint arthroplasty. Hardware components are in expected positions. Visualized bony structures are intact. Soft tissues: Overlying postoperative changes are noted. IMPRESSION: Expected post-operative appearance of a knee arthroplasty. Dictated by: Madhuri Ruth M.D. on 12/21/2023 at 19:57 Approved by: Madhuri Ruth M.D. on 12/21/2023 at 19:57
[2023-12-21] MEDS: ACETAMINOPHEN 325 MG TABLET 975 MG PO (09:25)
[2023-12-21] MEDS: VANCOMYCIN 1,000 MG/200 ML PIGGYBACK 200 MG IV (09:26)
[2023-12-21] MEDS: LACTATED RINGERS 1,000 ML 42 ML IV ×2 (09:26→12:21)
--- NOTE | 2023-12-21 09:45 | SUR.OPER ---
Supine on padded OR bed. Pillow under head, arms secured on padded armboards <90 degree abduction. Safety belt across torso. Non-operative leg secured with tape over blanket over lower leg. Operative leg secured in DeMayo/Aaron/Nathe positioner. Foam padded brace at thigh of operative leg.
[2023-12-21 09:53] LABS: Add Manual Diff / Slide Review NO; Basophils Absolute Auto 100 /uL (0-100); Eosinophils Absolute Auto 100 /uL (0-450); Eosinophils Percent Auto 2.1 % (2-4); Hematocrit 37.9 % (36-46); Hemoglobin 12.7 g/dL (12.0-16.0); Lymphocytes Absolute Auto 1200 /uL (1100-4500); Lymphocytes Percent Auto 20.6 % (25-40); Mean Corpuscular HGB Conc 33.5 % (30-36); Mean Corpuscular Volume 89.3 fL (80-100); Monocytes Absolute Auto 500 /uL (0-900); Monocytes Percent Auto 9.2 % (3-14); Neutrophils Absolute Auto 3800 /uL (1500-7000); Neutrophils Percent Auto 67.1 % (50-75); Platelet Count 258 X10^3/uL (150-400); Red Blood Cell Count 4.24 X10^6/uL (4.0-5.2); Red Cell Distribution Width 13.4 % (11.6-14.8); White Blood Cell Count 5.6 X10^3/uL (4.5-11.0)
[2023-12-21 10:00] LABS: Prothrombin Time 11.2 SECONDS (9.4-12.5)
--- NOTE | 2023-12-21 10:00 | PM.PREOP ---
Pre-operative Note Interval Note History & Physical reviewed/Exam performed by Physician: Yes Changes to H&P: No
--- NOTE | 2023-12-21 10:01 | P.OP_ITS ---
<Lisandra Quigley MD - Last Filed: 12/21/23 14:29> Operative Date/Time/Diagnoses Date of procedure: 12/21/23 Time of procedure: 11:10 Pre-op diagnosis: right knee OA Post-op diagnosis: same <Lisandra Quigley MD - Last Filed: 12/21/23 14:29> Procedure & Clinicians Procedure: Right total knee arthroplasty Same procedure as scheduled: Yes Indications: The patient has had progressively worsening right knee pain with radiographic changes consistent with arthritis. Non-operative management has failed and the patient has requested total knee replacement. The risks, benefits and alternatives to surgery were discussed with the patient prior to proceeding. Risks discussed included, but were not limited to, failure to relieve pain, stiffness, infection, nerve damage, deep venous thrombosis, pulmonary embolism, stroke, coma, heart attack, permanent paralysis and , as well as the potential need for eventual revision of the prosthetic. Surgeon: Lisandra Quigley Drop Pit Worker: Corazon Gundreson Anesthesia Type: General Operative Notes Findings: Severe right knee OA, adequate bone adequate stability Closure Type: primary Specimen(s): none sent Prosthetic devices, grafts, tissues, transplants, or devices: Quigley and nephew journey BCS 2 femur size 5, tibia size 3, patella 32 x 7.5 mm, 10 poly Estimated Blood Loss (mL): 250 Blood products transfused: none Tourniquet time (min): 104 Procedure in detail: The patient was seen in the pre-operative area, where the patient identified the right knee as the operative site and this was marked with my initials. The patient received pre-operative antibiotics, and was taken to the operating room and placed on the operative table in the supine position. After satisfactory anesthesia, a multimedia production assistant out was performed. The right leg was encircled with a tourniquet about the proximal thigh, and the leg was prepared from the toes to the tourniquet with ChloroPrep in the usual fashion and draped through sterile drapes. The leg was elevated and exsanguinated with Eschmark bandage and the tourniquet inflated to [250] mmHg pressure. The knee was approached through an approximately 18 cm incision centered over the patella and carried into the knee through a medial parapatellar arthrotomy. A Portion of the medial and lateral meniscus was resected. Soft tissue was carefully mobilized around the patella the patella was measured with a caliper. Bone was resected from the patella and the patellar height was reconstituted with up an appropriate sized patellar component. A cover was then placed on the patella. A small amount of additional medial and lateral meniscus was resected. Two pins were placed in the femur for robotic assisted navigation. The tibial guide was placed on the tibia and it was marked for robotic navigation. The femur and the tibia were then meticulously mapped and stressed and non stressed range of motion was mapped and a plan was made. It looked like a good plan an adequate distal femoral cut. Cori was used for the distal femoral resection. Appropriate size femoral guide was placed on the distal femur and finishing cuts were made. There was no evidence of notching. The anterior, posterior and chamfer cuts were then made. The posterior osteophytes and soft tissues were then removed. The posterior capsule was injected with part of a mixture of 60 ml 0.25% Marcaine mixed with 20 ml Exparel for post operative pain control. The remainder of this mixture was injected into the capsule and subcutaneous tissues during cement curing. The tibia guide was placed and it was carefully navigated. Tibia cut was made without difficulty. The patient was placed in extension residual medial and lateral meniscus as well as any residual bone was carefully resected. [No] additional tibia was resected. Hemostasis was achieved especially posteriorly. Additional local was injected into the posterior capsule. The femoral component was trial was placed and the notch was finished. Trial tibial and femoral components were then placed and the knee placed through a range of motion. Range of motion was [0-130], with good stability throughout the range. The trials were then removed, and the tibia was finished. The bone was prepared with pulsatile lavage, and dried with a sponge. Cement was applied and the final prosthetics placed. Excess cement was removed during and after cement curing. A brief Betadine soak was performed. After confirming there was no extruded cement posteriorly, the final tibial insert was placed. The knee was copiously irrigated and the tourniquet deflated. Hemostasis was obtained with the Bovie cautery. The capsule was closed with interrupted Vicryl. The subcutaneous layer was closed with barbed sutures, and the skin with a running 3-0 V-Lock suture and skin chris dressing was applied and the patient was taken to recovery having tolerated the procedure well. Complications: none Post-operative Condition: stable Disposition: Acute Care Plan for aftercare: The patient will be maintained on a standard total knee replacement protocol with weight bearing as tolerated. The patient will receive Lovenox and sequential compression devices for DVT prophylaxis. The patient will be discharged home when safe for the home environment. <Corazon Gunderson PA-C - Last Filed: 12/21/23 10:11> Post-operative Plan for aftercare: The patient will be maintained on a standard total knee replacement protocol with weight bearing as tolerated. The patient will receive Xarelto 10mg x 4 weeks and sequential compression devices for DVT prophylaxis. The patient will be discharged home when safe for the home environment.
[2023-12-21 10:07] LABS: BUN Creatinine Ratio 22.1 (6-22); Blood Urea Nitrogen 25 mg/dL (7-17); Calcium 9.2 mg/dL (8.4-10.2); Carbon Dioxide 28 mmol/L (22-32); Chloride 106 mmol/L (98-107); Estimated Glomerular Filt Rate 52 mL/min (>60); Glucose 111 mg/dL (80-110); Sodium 137 mmol/L (137-145)
[2023-12-21 10:08] LABS: HEMOLYSIS 73 (0-50); Potassium 4.4 mmol/L (3.4-5.1)
[2023-12-21] MEDS: CEFAZOLIN 2 GM/100 ML PREMIX 100 ML IV ×2 (11:15→18:23)
[2023-12-21] MEDS: BUPIVACAINE LIPOSOME 266 MG/20 ML VIAL INJ (11:24)
[2023-12-21] MEDS: BUPIVACAINE 0.25% (PF) 60 ML, EPINEPHrine 0.3 MG INJ (11:26)
[2023-12-21] MEDS: HYDROMORPHONE 1 MG INJ IV ×2 (13:59→14:11)
[2023-12-21] MEDS: OXYCODONE IR 5 MG TABLET PO ×3 (14:15→18:23)
[2023-12-21] MEDS: hydrOXYzine 50 MG/ML INJ 25 MG IM (14:34)
[2023-12-21] MEDS: LACTATED RINGERS 1,000 ML 100 ML IV (15:01)
[2023-12-21] MEDS: IBUPROFEN 400 MG TABLET PO ×2 (15:26→20:47)
[2023-12-21] MEDS: ACETAMINOPHEN 325 MG TABLET 650 MG PO (15:27)
[2023-12-21] MEDS: OXYCODONE IR 10 MG TABLET PO (15:27)
--- NOTE | 2023-12-21 16:57 | OT.IP.EVAL ---
Current Diagnoses Unilateral primary osteoarthritis, right knee (12/21/23) Surgery Performed Operation Date: 12/21/23 10:45 Actual Procedures p Total Knee Arthroplasty - Robot(Right) - Lisandra Quigley MD Past Medical History (Last Updated 08/07/23 @ 13:26 by Julita Noguera, RN) Anxiety Depression Diverticulosis Easy bruisability GERD (gastroesophageal reflux disease) History of COVID-19 (~2021) HLD (hyperlipidemia) HTN (hypertension) Hypothyroidism CASTILLO on CPAP Osteoarthritis Panic attacks Pulmonary embolism (2014) Surgical History (Last Updated 12/14/23 @ 09:53 by Julita Noguera, RN) History of hysterectomy History of partial hysterectomy History of total left knee replacement (08/15/23) Hx of bilateral breast reduction surgery (2021) Hx of discectomy (~1983) Occupational Therapy Inpatient Evaluation/Re-Eval M1 PT/OT-IP Prior Functional Status Start: 12/21/23 17:01 Freq: NEEDED Status: Active Protocol: Document 12/21/23 17:01 [facility] (Rec: 12/21/23 17:20 [facility] [id number]) Medical Review Prior Functional Status Communication Independent Mobility and Gait Use of FWW inside and on the porch. Activities of Daily Living and IADL's Pt's assist her with LB dressing as needed. Prior Functional Level (Other details) Pt has L TKA 08/15/24 and just completed seeing PT for her left knee last week. Pt's daughter to stay and assist for 2 weeks. Pt's has had recent quad tear and sx this past October and use of a device at night. Social History Household Members spouse Living Arrangements House Number of Floors (Floors) One Floor Number of Stairs To Enter/Railing? 5 steps with right rail going up to the home. Home Environment Standard Height Toilet,Walk in Shower Home Equipment Front Wheel Walker,Straight Cane,Hand Held Shower,Long Handled Shoe Horn,Grab Bars In Shower Additional Social History Comment Pt has handles attached to the toilet. M2 OT-IP Current Condition Start: 12/21/23 17:01 Freq: Status: Active Protocol: Document 12/21/23 17:01 [facility] (Rec: 12/21/23 17:20 [facility] [id number]) Occupational Therapy Current Condition Current Condition Evaluation Date 12/21/23 Treatment Diagnosis S/P R TKA Diagnosis Onset Date 12/21/23 M3 OT- IP Subjective and Pain Start: 12/21/23 17:01 Freq: Status: Active Protocol: Document 12/21/23 17:01 [facility] (Rec: 12/21/23 17:20 [facility] [id number]) OT- Subjective Occupational Therapy Visit Type Type Initial Evaluation Visit Start Time 16:05 Visit Stop Time 16:58 Occupational Therapy Visit Comments Patient Comments Pt wanting to try to use the BSC. Patient/Caregiver Goals TO go home. OT Pain Assessment Pain When Pain Assessed During Mobility Pain Present Pain Present Pain Reported Location Left Knee Intensity 6 Scale Used Numeric (0 - 10) M4 OT- IP ADL's Start: 12/21/23 17:01 Freq: Status: Active Protocol: Document 12/21/23 17:01 [facility] (Rec: 12/21/23 17:20 [facility] [id number]) OT [id number] Comments OT Self-Feeding Comments No issues anticipated, but may need assist for set-up due to hand tremors. OT ADL-Grooming Comments OT Grooming Comments Assist for set-up. OT ADL-Oral Care Comments Oral Care Comments NOt performed. OT ADL-Dressing General Eval Lower Body Dressing Ability Total Assistance Areas Needing Assistance Underpants/Brief,Socks Comments OT Dressing Comments Educated to dress her RLE first and take out last. Pt states at home mainly just wore a robe for after her L TKA. Pt states has slip on shoes and that her family will assist her as needed. Suggested pt get a paralegal instructor. OT ADL-Toileting General Evaluation Toileting Ability Maximum Assistance Areas Needing Assistance Manage Clothing,Perform Perineal Hygiene Comments OT Toileting Comments Pt needing assist for all hygiene and brief management needs at this time. Educated pt to be mindful of her knee positioning during ADl needs. OT ADL-Bathing Comments OT Bathing Comments Not performed. M5 OT- IP IADL's Start: 12/21/23 17:01 Freq: Status: Active Protocol: Document 12/21/23 17:01 [facility] (Rec: 12/21/23 17:20 [facility] [id number]) OT-Instrumental Activities of Daily Living Deficits IADL Deficits Identified Deficits Home Safety Awareness Awareness of Need for Assistance at Home Good Awareness Ability to Problem Solve Emergency Able to Problem Solve Situations Meal Preparation Meal Preparation Caregiver Provides Assist Preforms Laminator Preforms Laminator Caregiver Provides Assist M6 OT- IP Functional Cognition Start: 12/21/23 17:01 Freq: Status: Active Protocol: Document 12/21/23 17:01 [facility] (Rec: 12/21/23 17:20 [facility] [id number]) Cognitive Factors Limiting Selfcare Function Cognitive Ability Level of Alertness Alert Patient Orientation Name,Age,Birthday,Month,Date, Year,Day of Week,Place, Situation Attention Span Ability Capable of Focused Attention, Capable of Sustained Attention Ability to Follow Commands Able to Follow One Step Commands Cognitive Comments Cognitive Assessment Comments Pt able to follow directions for ADl and mobility needs. OT- Vision and Hearing OT- Hearing Assessment OT- Hearing Assessment WFL OT- Vision Assessment Visual Acuity Glasses All The Time Visual Attentiveness WFL Occular Pursuits WFL M7 OT- IP Mobility and Balance Start: 12/21/23 17:01 Freq: Status: Active Protocol: Document 12/21/23 17:01 [facility] (Rec: 12/21/23 17:20 [facility] [id number]) OT- Bed Mobility Assessment Supine to Sit Supine to Sit Assist Maximum Assistance,1 Person Assistance,Head of Bed Elevated,Bedrails Sit to Supine Sit to Supine Assist Maximum Assistance,2 Person Assistance Scooting Scooting to Edge of Bed Maximum Assistance,1 Person Assistance OT-Transfer Assessment Sit to and From Stand Sit to and from Stand Moderate Assistance,2 Person Assistance Transfers Transfer Ability Moderate Assistance,Maximum Assistance,2 Person Assistance Technique Transfer Destination Bed,Bedside Commode Transfer Technique Stand Step Pivot Devices Transfer Assistive Devices Gait Belt,Front Wheeled Walker Comments Mobility Comments MAXAX to assist with RLE management to get to the edge the bed and heavy use of her arms on the bed and railing to assist. Assist to help unweight her hips so able to scoot forwards. MODA X2 to stand to FWW , assist to move the FWW, balance, and gurad her right knee and vc to be sure to stiffen her RLE. At time pt able to lift her LLE up and at times need to just shuffle her feet in order to move. MAX XA 2 to help get back to bed. Pt states to sleep in the recliner initially at home. . OT- Balance Assessment Sitting Balance and Reactions Static Sitting Balance Ability Good Dynamic Sitting Balance Ability Fair Standing Balance and Reactions Static Standing Balance Ability Poor Dynamic Standing Balance Ability Poor M8 OT- IP Objective Assessments Start: 12/21/23 17:01 Freq: Status: Active Protocol: Document 12/21/23 17:01 [facility] (Rec: 12/21/23 17:20 [facility] [id number]) OT Gross Range of Motion Upper Extremity Range of Motion Assessment Right Impaired OT Strength Comments Strength Comments WFL for needs OT- Coordination Assessment Comments Coordination Comments Pt has tremors in her hands. M9 OT- IP Assessment and Plan Start: 12/21/23 17:01 Freq: Status: Active Protocol: Document 12/21/23 17:01 [facility] (Rec: 12/21/23 17:20 [facility] [id number]) OT Summary Assessment and Plan Potential Rehabilitation Potential Good Analytic Complexity at Evaluation Low Summary OT Impairments Pain,Range of Motion,Strength, Balance,Functional Mobility, Grooming,Dressing,Toileting, Bathing,Toilet Transfers, Shower Transfers,Activity Tolerance Progress Towards Goals Slow Progress due to Pain,Slow Progress due to Activity Tolerance Assessment Summary Pt low complexity and main barriers are pain, steps, and will need assist for mobility and ADL needs. Able to educate pt on ADL and mobility needs. Pt to go home with assist when medically stable and have outpt PT. Pt's daughter to be staying with her and her for 2 weeks to assist with her care. Pt states already has outpt PT set up. Goals Self-Feeding Goal Independent Grooming Goal Independent Dressing Goal Minimal Assistance Toileting Goal Independent Bathing Goal Minimal Assistance Toilet Transfer Goal Independent Shower Transfer Goal Standby Assistance Days to Meet Goals 10 Frequency of Treatment Frequency Of Treatment Once a Day Treatment Plan OT Treatment Plan ADL Training,Functional Mobility,Patient/Family Education,Discharge Planning Other Treatment Recommendations and Next Standing ADL's Treatment Focus Discharge Recommendations OT Discharge Recommendations Home with 08/05 Assist Available,Outpatient PT Home Equipment Needs paralegal instructor Transportation Needs at Discharge Private Vehicle
[2023-12-21] MEDS: ATORVASTATIN 20 MG TABLET 10 MG PO (20:47)
[2023-12-21] MEDS: DOCUSATE 100 MG CAPSULE PO (20:47)
[2023-12-22] MEDS: LACTATED RINGERS 1,000 ML 100 ML IV (00:08)
[2023-12-22] MEDS: CEFAZOLIN 2 GM/100 ML PREMIX 100 ML IV (02:51)
[2023-12-22] MEDS: LEVOTHYROXINE 137 MCG TABLET PO (06:00)
[2023-12-22] MEDS: PANTOPRAZOLE DR 20 MG TABLET PO (06:00)
[2023-12-22] MEDS: ACETAMINOPHEN 325 MG TABLET 650 MG PO ×2 (06:02→11:56)
[2023-12-22] MEDS: IBUPROFEN 400 MG TABLET PO ×2 (06:02→11:06)
[2023-12-22] MEDS: OXYCODONE IR 10 MG TABLET PO ×2 (06:02→11:56)
[2023-12-22 06:19] LABS: Hematocrit 36.8 % (36-46); Hemoglobin 12.2 g/dL (12.0-16.0)
--- NOTE | 2023-12-22 07:32 | PM.DS.1 ---
History of Present Illness History of Present Illness Chief complaint: Right Total Knee Arthroplasty Narrative: Megan is a pleasant 68 year old female who is POD#1 s/p right TKA by Dr. Quigley. She reports she is overall feeling well and ready to discharged home today with her family. Pain is mild and well-controlled with oral pain medication. She has a and daughter at home to help with her immediate postop recovery. Has gotten up 2x to urinate this morning and feels confident in her ability to ambulate with the assistance of a walker. Has postop physical therapy appointments scheduled at [facility], 1st appointment is Monday. Has postop medications at home already. Has walker at home as well. Denies chest pain, shortness of breath, fevers, chills, nausea, vomiting. Operative Date/Time/Diagnoses Date of procedure: 12/21/23 Time of procedure: 11:10 Pre-op diagnosis: right knee OA Post-op diagnosis: same Procedure & Clinicians Procedure: Right total knee arthroplasty Same procedure as scheduled: Yes Indications: The patient has had progressively worsening right knee pain with radiographic changes consistent with arthritis. Non-operative management has failed and the patient has requested total knee replacement. The risks, benefits and alternatives to surgery were discussed with the patient prior to proceeding. Risks discussed included, but were not limited to, failure to relieve pain, stiffness, infection, nerve damage, deep venous thrombosis, pulmonary embolism, stroke, coma, heart attack, permanent paralysis and , as well as the potential need for eventual revision of the prosthetic. Surgeon: Lisandra Quigley Compensation Manager: Corazon Gunderson Anesthesia Type: General Discharge Providers Provider Discharge Date: 12/22/23 Primary care physician: EULALIA Plummer Consults: 12/21/23 06:00 Consult to Anesthesiology Routine Comment: Consulting Provider: Anesthesiologist Reason for consultation: Regional block for post operative pain control 12/21/23 14:45 Consult to Discharge Planning Routine Comment: Consult to Occupational Therapy Evaluate & Treat Comment: Physician Instructions: Evaluate and treat Consult to Physical Therapy Evaluate & Treat Comment: Physician Instructions: postop TKA protocol Discharge provider: Estephanie Ruth PA-C Summary Hospital Course Discharge Diagnosis: Right knee OA status post right TKA Hospital Course: Uncomplicated hospital course Exam Vital Signs (past 8 hours): Oxygen Delivery Method Room Air Oxygen Flow Rate 0 Narrative Exam Narrative: Lying comfortably in bed during our interview today. Resp Effort & Inspection: normal respiratory effort and able to speak in complete sentences Cardio Rate: regular rate Other: Brisk capillary refill. Neuro Other: Sensation intact throughout bilateral lower extremities. Extrem Other: Grossly normal alignment, moderate joint effusion. No significant ecchymosis. 5/5 strength with DF, PF, EHL. Intact, functioning leandro dressing in place over the right anterior knee with mild bloody discharge. Calves soft and compressible bilaterally. Psych Mental Status: mental status grossly normal Speech and Movement: speech and movement normal Objective Labs 12/22/23 06:04 12/21/23 09:45 Labs: Laboratory Results - last 24 hr 12/21/23 12/22/23 09:45 06:04 WBC 5.6 RBC 4.24 Hgb 12.7 12.2 Hct 37.9 36.8 MCV 89.3 MCH 30.0 MCHC 33.5 RDW 13.4 Plt Count 258 Neut % (Auto) 67.1 Lymph % (Auto) 20.6 L [place] % (Auto) 9.2 Eos % (Auto) 2.1 Baso % (Auto) 1.0 Neut # (Auto) 3800 Lymph # (Auto) 1200 [place] # (Auto) 500 Eos # (Auto) 100 Baso # (Auto) 100 PT 11.2 INR 1.0 Sodium 137 Potassium 4.4 Chloride 106 Carbon Dioxide 28 BUN 25 H Creatinine 1.13 H Estimated GFR 52 L BUN/Creatinine Ratio 22.1 H Glucose 111 H Calcium 9.2 PFSH Medical History (Updated 08/07/23 @ 13:26 by Julita Noguera RN) History of COVID-19 (~2021) Pulmonary embolism (2014) Panic attacks Anxiety Depression Easy bruisability Osteoarthritis Hypothyroidism Diverticulosis GERD (gastroesophageal reflux disease) HLD (hyperlipidemia) HTN (hypertension) CASTILLO on CPAP Surgical History (Updated 12/14/23 @ 09:53 by Julita Noguera RN) History of hysterectomy History of total left knee replacement (08/15/23) Hx of bilateral breast reduction surgery (2021) Hx of discectomy (~1983) History of partial hysterectomy Social History household members: spouse Smoking Status: Never smoker alcohol intake: current Discharge Assessment & Plan Assessment and Plan Assessment: Stable status post right TKA Plan of Treatment: 1) Continue multimodal pain management. Patient has post-op medications at home and has been instructed on their use. Ice to the knee for additional pain control. 2) The patient will receive Xarelto 10mg x 4 weeks for DVT prophylaxis. 3) Keep dressing intact until 2 week postop appointment. No soaking the incision site and pulls or tubs. No topical ointments or creams to the incision site. 4) Weight-bearing as tolerated. Continue to work on mobility with outpatient physical therapy and strengthening and stretching at home. 5) Follow up at [facility] in 2 weeks for a postop appointment and wound check. All patient's questions were answered, she is in agreement with the plan. Discharge Plan Discharge Plan Patient Disposition: Home Discharge orders & Medications Discharge Orders: Discharge (Order); Ordered 12/22/23 Ordered By: Estephanie Ruth Prescriptions: New docusate sodium 100 mg Capsule 100 mg PO BID PRN (Reason: constipation) Qty: 30 0RF oxycodone 5 mg Tablet 5 mg PO Q4-6H PRN (Reason: Pain, Moderate (4-6)) Qty: 30 0RF ibuprofen 400 mg Tablet 400 mg PO Q4H PRN (Reason: Pain, Mild (1-3)) Qty: 90 0RF Continued levothyroxine 137 mcg Tablet 137 mcg PO DAILY atorvastatin 10 mg Tablet 10 mg PO BEDTIME lisinopril-hydrochlorothiazide 20-12.5 mg Tablet 1 tab PO DAILY citalopram 10 mg Tablet 10 mg PO DAILY acetaminophen 650 mg Tablet Extended Release 650 mg PO DAILY PRN (Reason: Pain) torsemide 5 mg Tablet 5 mg PO DAILY omeprazole 20 mg Capsule,Delayed Release(Dr/Ec) 20 mg PO DAILY bupropion HCl 150 mg Tablet Extended Release 24 Hr 150 mg PO QAM isosorbide mononitrate 30 mg Tablet Extended Release 24 Hr 30 mg PO DAILY aspirin 81 mg Tablet 81 mg PO DAILY Follow up/Referrals: Elijah Orozco ARNP [Primary Care Provider] - Lisandra Quigley MD [Physician] - 01/02/24 2:30 pm (Follow up w/ Estephanie Ruth PA-C, at [facility] office in [place].) Diet/Activity/Treatments Diet: Diet as Tolerated Activity: Walk frequently! Weight bearing as tolerated. Continue to work on mobility with outpatient PT. Cold/Heat Therapy: Ice to knee as needed for pain. Skin/Wound/Dressing Care Report to your healthcare provider any signs of infection, such as:: chills, fever, night sweats, unusual drainage and unusual redness Dressing: May remove CRISTAL wrap and shower on 12/24/2023. Leave dressing in place until follow up in office. Batteries will in 5-7 days, at which point you can cut off battery pack and dispose of it. No bathing or otherwise soaking incision. Call the office if the dressing becomes saturated inside. Visit Report/Discharge Packet Instructions: DI for Knee Replacement, DI for Prescription Opioid Use Stand Alone Forms: Patient Portal/API Discharge Data Primary Care Provider: Elijah Orozco Attending Provider: Lisandra Quigley VTE Deep Vein Thrombosis/Pulmonary Embolism Present on Admission: No
[2023-12-22 08:15] VITALS: BP 108/58; PULSE 75
[2023-12-22] MEDS: DOCUSATE 100 MG CAPSULE PO (08:51)
[2023-12-22] MEDS: polyethylene glycoL 3350 17 GM POWD.PACK PO (08:51)
[2023-12-22] MEDS: CITALOPRAM 10 MG TABLET PO (08:51)
[2023-12-22] MEDS: ASPIRIN EC 81 MG TABLET PO (08:51)
[2023-12-22] MEDS: OXYCODONE IR 5 MG TABLET PO (08:52)
[2023-12-22] MEDS: TORSEMIDE 10 MG TABLET 5 MG PO (08:52)
[2023-12-22] MEDS: hydroCHLOROthiazide 25 MG TABLET 12.5 MG PO (08:52)
[2023-12-22] MEDS: buPROPion XL 150 MG TAB PO (08:53)
--- NOTE | 2023-12-22 09:45 | PT.IIE ---
Current Diagnoses Unilateral primary osteoarthritis, right knee (12/21/23) Surgery Performed Operation Date: 12/21/23 10:45 Actual Procedures p Total Knee Arthroplasty - Robot(Right) - Lisandra Quigley MD Surgical History (Last Updated 12/14/23 @ 09:53 by Julita Noguera, RN) History of hysterectomy History of partial hysterectomy History of total left knee replacement (08/15/23) Hx of bilateral breast reduction surgery (2021) Hx of discectomy (~1983) Medical History (Last Updated 08/07/23 @ 13:26 by Julita Noguera RN) Anxiety Depression Diverticulosis Easy bruisability GERD (gastroesophageal reflux disease) History of COVID-19 (~2021) HLD (hyperlipidemia) HTN (hypertension) Hypothyroidism CASTILLO on CPAP Osteoarthritis Panic attacks Pulmonary embolism (2014) Physical Therapy Inpatient Evaluation/Re-Eval M1 PT/OT-IP Prior Functional Status Start: 12/22/23 13:07 Freq: NEEDED Status: Active Protocol: Document 12/22/23 09:45 AB (Rec: 12/22/23 13:27 AB [id number]) Medical Review Prior Functional Status Medical History Reviewed Yes Communication able to make needs known Mobility and Gait pt stated that she was modified independent with all mobilities and ambulation using a SPC Activities of Daily Living and IADL's per OT notePt's assist her with LB dressing as needed. Social History Household Members spouse Living Arrangements House Number of Floors (Floors) One Floor Number of Stairs To Enter/Railing? 5 steps R rail ascending to enter the house Home Environment Standard Height Toilet,Walk in Shower Home Equipment Front Wheel Walker,Straight Cane,Hand Held Shower,Long Handled Shoe Horn,Grab Bars In Shower Additional Social History Comment pt stated that her daughter will be staying with her for 1 1/2 weeks to assist and afterwards, she has a friend who can stay with her for a few days; stated that spouse has a recent quads sx. spoke with spouse and stated that he is the main person who will assist pt and daughter only in there for moral support pt has a toilet safety frame pt plans to sleep on her recliner M2 PT-IP Current Condition Start: 12/22/23 13:07 Freq: NEEDED Status: Active Protocol: Document 12/22/23 09:45 AB (Rec: 12/22/23 13:27 AB [id number]) Physical Therapy Current Condition Current Condition Evaluation Date 12/22/23 Treatment Diagnosis s/p R TKA; difficulty in walking Onset Date 12/21/23 M3 PT-IP Subjective Start: 12/22/23 13:07 Freq: NEEDED Status: Active Protocol: Document 12/22/23 09:45 AB (Rec: 12/22/23 13:27 AB [id number]) Subjective Physical Therapy Visit Type Type Initial Evaluation Visit Start Time 09:45 Visit Stop Time 10:45 Number of LOTTERY SALES CLERK Visits 60 Physical Therapy Visit Comments Patient Comments pt is agreeable to do PT Therapy Pain Assessment Pain When Pain Assessed At Rest Pain Present Pain Present Pain Reported Location Left Knee Intensity 2 Scale Used increases to 5/10 with mobility Pain Behaviors Guarding,Holding Area Pain Management Techniques Apply Cold,Distraction, Modification of Treatment,Re- positioning,Timing of Activity with Medications M4 PT-IP Mobility and Gait Start: 12/22/23 13:07 Freq: NEEDED Status: Active Protocol: Document 12/22/23 09:45 AB (Rec: 12/22/23 13:27 AB [id number]) PT-Bed Mobility Assessment Supine to Sit Supine to Sit Standby Assistance,1 Person Assistance,Head of Bed Elevated PT-Transfer Assessment Sit to and From Stand Sit to and from Stand Contact Guard Assistance, Minimal Assistance,Use of Upper Extremities Equipment Transfer Assistive Device Gait Belt,Front Wheeled Walker Orthotic/Prosthetic Devices or Brace: No Transfers Transfer Destination Chair,Toilet Transfer Technique ambulated Transfer Ability Level of Assist Contact Guard Assistance, Minimal Assistance,1 Person Assistance,Use of Upper Extremities Comments Mobility Comments pt supine in bed and agreeable to do PT. obtained PLOF and home set up from pt. BP in supine: 105/54. pt completed supine to sit SBA. able to sit on EOB SBA. BP in sittin/71. completed sit to stand min A and ambulated using FWW ~ 15 ft CGA to min and sat on the chair. BP: 111/52. pt stated that she has use the toilet. completed sit to stand CGA and ambulated using FWW to the toilet with initial min A but midway was able to complete with CGA. required min A for steadiness in standing while pt manages brief and hygiene care. completed sit to stand from the toilet using grab bar CGA. pt ambulated ~ 10 ft and stated that she has to sit down due to dizziness. pt able to ambulate to the chair. BP checked: 103/58 . positioned pt on the chair. call light and table placed within reach. informed pt regarding caregiver training and agreed. pt gave PT permission to call her family to set up caregiver training. called pt 's spouse and stated that he is the main person that will be assisting pt and daughter in there only for moral support. informed spouse regarding caregiver training and initially refusing. stated that pt had her other knee done before and has gone through it before already. informed spouse why caregiver training is needed and it is still there option if they want it or not. spouse stated that they are going to take her home and if PT is in there to do the training, they will do it but stated that they will not arrange for another time. set up 1pm caregiver training. Gait Assessment Gait Gait Assistance Required: Contact Guard Assist,Minimum Assistance,1 Person Assist Distance (Feet) 15 Able to Maintain Weight Bearing Status Yes During Gait Assistive Devices Assistive Device Gait Belt,Front Wheeled Walker Orthotic/Prosthetic Devices or Brace: No Gait Deviations General Gait Pattern Antalgic,Decreased Stride Length,Decreased Feet Clearance,Step-to Gait Factors Limiting Gait Function Factors Limiting Gait Function Decreased Activity Tolerance, Decreased Strength,Difficulty Following Directions,Limited Range of Motion,Pain,Poor Balance,Poor Safety Awareness PT-Balance Assessment Sitting Balance and Reactions Static Sitting Balance Ability Normal Dynamic Sitting Balance Ability Good Standing Balance and Reactions Static Standing Balance Ability Fair Dynamic Standing Balance Ability Fair Device Used FWW M5 PT-IP Objective Assessments Start: 12/22/23 13:07 Freq: NEEDED Status: Active Protocol: Document 12/22/23 09:45 AB (Rec: 12/22/23 13:27 AB [id number]) Orientation Orientation/Cognition Level of Alertness Alert Orientation Name,Place,Situation Language Function Ability Hard of Hearing Safety Awareness Decreased Safety Awareness Memory Description Short Term Impaired Gross Range of Motion Lower Extremity ROM Assessment Right Impaired Impairments R knee flexion: 40 deg Strength Lower Extremity Strength Assessment Right Impaired Hip 3+/5 Knee 3+/5 Muscle Tone Muscle Tone WNL Yes M6 PT-IP Treatment Start: 12/22/23 13:07 Freq: NEEDED Status: Active Protocol: Document 12/22/23 09:45 AB (Rec: 12/22/23 13:27 [id number]) Physical Therapy Treatment Education Education Provided Precautions,Weight Bearing Status,Post-Op Packet,Safety M7 PT-IP Assessment and Plan Start: 12/22/23 13:07 Freq: NEEDED Status: Active Protocol: Document 12/22/23 09:45 AB (Rec: 12/22/23 13:27 AB [id number]) PT Summary Assessment and Plan Potential Rehabilitation Potential Fair Status of Condition at Evaluation Evolving Summary Impairments Pain,ROM,Strength,Balance, Coordination,Sensation,Tone, Cognition,Bed Mobility, Transfers,Gait,Activity Tolerance Assessment Summary pt is a 68 y/o F s/p R TKA POD 1. pt is WBAT on RLE. pt requiring CGA to min A with mobility using FWW. caregiver training set up at 1pm. will continue to assess progress. Goals Bed Mobility Goal Independent Transfer Goal Independent,Front Wheeled Walker Gait Goal Independent,Front Wheel Walker Gait Distance 250 Other Goals up/down 5 steps R rail ascending SBA Days to Meet Goals 5 Frequency of Treatment Frequency Of Treatment Twice a Day Treatment Plan Physical Therapy Treatment Plan Bed Mobility Training,Transfer Training,Gait Training, Therapeutic Exercise,Balance Retraining,Post Op Education, Discharge Planning,Hot or Cold Pack,Neuromuscular Re-ed, Coordination Retraining,Manual Therapy Weight Bearing Status Weight Bearing Status Weight Bear as Tolerated Allowed Weight Bearing Amount (enter % RLE WBAT or #) (%) Recommendations To Nursing Amount of Assist Needed 1 Person Assist Discharge Recommendations PT Discharge Recommendations Home with 08/05 Assist Available,Home Health Transportation Needs at Discharge Private Vehicle
--- NOTE | 2023-12-22 10:37 | CM.DANOTE ---
Initial DCP Assessment Visit Note Reviewed EMR and team rounds for status updates. Met with pt at bedside to introduce self and role, pt was working with OT at the time of this visit. Pt resides independently in her own home with spouse in [place]. Her spouse will be here later today for cg training, then will transport pt home for d/c. Payor: Medicare Attending: Lisandra Quigley Pt is a 68 year-old F placed in OPB following her R-knee total arthroplasty surgery yesterday. Pt has a hx of worsening L-knee pain that has significantly impacted her functional ability and activities of daily living, despite having tried several conservative methods for pain management. She is indpendent and drives herself at baseline, has all of the DME that she is needing for post-op recovery at home and ready. Pt also had a recent L-TKA on 08/15/24, and had just finished OP PT for that last week. She does already have OP PT scheduled for this admission/surgery as well. No DCP needs have been identified for assistance at this time. DCP will continue to follow for any further evolving needs that arise. Discharge Planning/Care Management CM Discharge Assessment Start: 12/22/23 10:24 Freq: Status: Active Protocol: Document 12/22/23 10:24 DPL (Rec: 12/22/23 10:36 DPL [id number]) Discharge Planning Assessment Assigned Cna Instructor BARBARA Baker Advance Directives? Yes Advance Directives on File No History Provided By Patient,Medical Record Has Patient been admitted in last 30 No days? Prior Living Arrangements House Household Members spouse Type of transporation used prior to Drives own vehicle admit Caregiver for Another No Community Services used prior to Physical Therapy admission: DME Already Rented / Owned FWW / Walker,Cane Comment handles attached to toilet for safety Patient/Family Preference OP PT Therapy Comment pending caregiver training with sp this afternoon Discharge Plan Home Transportation Arrangement Family Referrals Initiated None needed Whiteboard Updated in Patient Room with Yes name and ext. # of Cna Instructor Review Status In Process Please Provide Date Initial DC 12/22/23 Assessment Was Performed Pre-Anesthesia Assessment Start: 12/14/23 09:33 Freq: Status: Active Protocol: Document 12/14/23 09:33 CAB (Rec: 12/14/23 10:19 CAB [id number]) Pre-Anesthesia Assessment Preferred Name Tierra Patient Information Reviewed Via Phone Assessment Assessment Completed With Patient Diagnostic Results BMP/CMP,CBC,EKG Comment Outside labs/EKG-EKG reviewed by Relief Cook, states no change from prior Primary Care Provider Elijah Orozco Seen Specialist in Last 12 Months Yes Specialist Seen Relief Cook,Orthopedist Primary Language Sinhala Preferred Language Sinhala Unindentured Apprentice Required No Height 157.48 cm Weight 100.698 kg Body Mass Index (BMI) 40.6 Hearing Ability Normal Visual Assist Glasses Dentition Type Teeth, Natural Present Barriers to Learning None Other Aids No Hx Anesthesia Reactions No Hx Family Anesthesia Reaction No Hx Malignant Hyperthermia No Hx Blood Transfusions No Hx Blood Transfusion Reaction No Anesthesia Review Requested No Conveyor Mechanic No alcohol intake current alcohol intake frequency holidays/special occasions only Smoking Status Never smoker Substance Use Type does not use Pain Present Pain Reported Musculoskeletal Symptoms Abnormal Gait,Back Pain, Difficulty Walking,Joint Pain History of Falling (Recent or History of Yes ) Patient is completely paralyzed or No completely immobile Prosthesis or Orthotic Device Cane Mental Status Oriented to own ability Is patient on oxygen? No Does patient have MARROQUIN/SOB No Hx Sleep Apnea Yes CPAP/BIPAP use prescribed and used routinely Will Bring CPAP/BIPAP DOS Yes Currently Taking a Beta Marko No Can You Climb a Flight of Stairs Without Yes SOB Hx Chest Pain No Hx SOB Yes: MARROQUIN, improved with isosorbide mononitrate Hx Syncope or Dizziness No Anti-Coagulant Therapy Yes: ASA Has a Relief Cook Yes: Pre-ope clearance visit Relief Cook name Dr. Ramirez @ Cardiac Testing No Hx Pacemaker/ICD No Pacemaker Rep Required? 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 Yes Received all doses? Yes Marital Status Lives With spouse Current Living Arrangements House Number of Floors (Floors) One Floor Number of Stairs To Enter/Railing? 5 Support System Spouse Does the Patient Have Assistance After Yes Surgery Patient Discharge Plan Description Return Home Feels Safe in Current Environment Yes Been Physically Hurt or Threatened By a No Person in Current Environment Do you have thoughts of harming yourself None or others? Are you currently considering suicide? No Do you have a plan to hurt yourself or No Plan others? Do You Have Any Spiritual Beliefs That No May Affect Your HC Choices? Do You Have Any Cultural Practices That No May Affect Your HC Choices? Who Can We Speak to About Patient's Care Family, friends Identifying Code for Release of Patient Declines to issue Information Health Care Proxy/Next of Kin Conrado () Health Care Proxy Emergency Contact Name Conrado () Emergency Contact Advance Directives? Yes Advance Directives on File No Power of Middle School English Teacher Yes Power of Middle School English Teacher Name Conrado () Power of Middle School English Teacher PAC Instructions Bring CPAP/BIPAP,Do not shave/ clip surgical site,Durable medical equipment,Medications to take/avoid,Nasal antibiotic ,No ETOH/petroleum product on skin DOS,NPO,Post-op transportation,Pre-surgical wash,Sensory aids,Sturdy shoes /comfortable clothes,Do not bring valuables and remove jewelry
--- NOTE | 2023-12-22 11:50 | OT.IP.TRT ---
Current Diagnoses Unilateral primary osteoarthritis, right knee (12/21/23) Surgery Performed Operation Date: 12/21/23 10:45 Actual Procedures p Total Knee Arthroplasty - Robot(Right) - Lisandra Quigley MD Occupational Therapy Treatment Note M2 OT-IP Current Condition Start: 12/21/23 17:01 Freq: Status: Active Protocol: Document 12/21/23 17:01 [facility] (Rec: 12/21/23 17:20 [facility] [id number]) Occupational Therapy Current Condition Current Condition Evaluation Date 12/21/23 Treatment Diagnosis S/P R TKA Diagnosis Onset Date 12/21/23 M3 OT- IP Subjective and Pain Start: 12/21/23 17:01 Freq: Status: Active Protocol: Document 12/22/23 11:51 [facility] (Rec: 12/22/23 11:58 [facility] [id number]) OT- Subjective Occupational Therapy Visit Type Type Treatment Note Visit Start Time 11:12 Visit Stop Time 11:50 Occupational Therapy Visit Comments Patient Comments Pt agreed to work with OT. Patient/Caregiver Goals TO go home. OT Pain Assessment Pain When Pain Assessed At Rest Pain Present Pain Present Pain Reported M4 OT- IP ADL's Start: 12/21/23 17:01 Freq: Status: Active Protocol: Document 12/22/23 11:51 [facility] (Rec: 12/22/23 11:58 [facility] [id number]) OT ONX-Yrdr-[id number] Comments OT Self-Feeding Comments Not at meal time. OT ADL-Grooming Comments OT Grooming Comments Not performed. OT ADL-Oral Care Comments Oral Care Comments Not performed. OT ADL-Dressing General Eval Lower Body Dressing Ability Maximum Assistance Comments OT Dressing Comments Able to practise use of plumber assistant and sock aid with pt . Reiterated best to dress her RLE first and then take it out last. OT ADL-Toileting Comments OT Toileting Comments Suggested pt get a BSC for home use. OT ADL-Bathing Comments OT Bathing Comments Pt able to shower earlier with nursing. M5 OT- IP IADL's Start: 12/21/23 17:01 Freq: Status: Active Protocol: Document 12/21/23 17:01 [facility] (Rec: 12/21/23 17:20 [facility] [id number]) OT-Instrumental Activities of Daily Living Deficits IADL Deficits Identified Deficits Home Safety Awareness Awareness of Need for Assistance at Home Good Awareness Ability to Problem Solve Emergency Able to Problem Solve Situations Meal Preparation Meal Preparation Caregiver Provides Assist Concaver Concaver Caregiver Provides Assist M6 OT- IP Functional Cognition Start: 12/21/23 17:01 Freq: Status: Active Protocol: Document 12/22/23 11:51 [facility] (Rec: 12/22/23 11:58 [facility] [id number]) Cognitive Factors Limiting Selfcare Function Cognitive Ability Level of Alertness Alert Patient Orientation Name,Age,Birthday,Month,Date, Year,Day of Week,Place, Situation Attention Span Ability Capable of Focused Attention, Capable of Sustained Attention Ability to Follow Commands Able to Follow One Step Commands Memory Description Short Term Impaired Cognitive Comments Cognitive Assessment Comments Pt did not recall yesterday's OT eval or even remembering coming to the room after her knee surgery. Able to go over and re-review OT needs for ADL 's. Able to also write down suggested equipment for pt- BSC , plumber assistant, sock aid and possibly dressing stick. M7 OT- IP Mobility and Balance Start: 12/21/23 17:01 Freq: Status: Active Protocol: Document 12/22/23 11:51 [facility] (Rec: 12/22/23 11:58 [facility] [id number]) OT- Balance Assessment Sitting Balance and Reactions Static Sitting Balance Ability Good Dynamic Sitting Balance Ability Good M8 OT- IP Objective Assessments Start: 12/21/23 17:01 Freq: Status: Active Protocol: Document 12/21/23 17:01 [facility] (Rec: 12/21/23 17:20 [facility] [id number]) OT Gross Range of Motion Upper Extremity Range of Motion Assessment Right Impaired OT Strength Comments Strength Comments WFL for needs OT- Coordination Assessment Comments Coordination Comments Pt has tremors in her hands. M9 OT- IP Assessment and Plan Start: 12/21/23 17:01 Freq: Status: Active Protocol: Document 12/22/23 11:51 [facility] (Rec: 12/22/23 11:58 [facility] [id number]) OT Summary Assessment and Plan Potential Rehabilitation Potential Good Analytic Complexity at Evaluation Low Summary OT Impairments Pain,Range of Motion,Strength, Balance,Functional Mobility, Grooming,Dressing,Toileting, Bathing,Toilet Transfers, Shower Transfers,Activity Tolerance Progress Towards Goals Progressing Toward Goals Assessment Summary Pt not able to recall doing OT eval yesterday and therefore re-educated pt on OT needs for ADL's. Pt's daughter to be staying with her to assist. Pt to go home when medically stable. Goals Self-Feeding Goal Independent Grooming Goal Independent Dressing Goal Minimal Assistance Toileting Goal Independent Bathing Goal Minimal Assistance Toilet Transfer Goal Independent Shower Transfer Goal Standby Assistance Days to Meet Goals 9 Frequency of Treatment Frequency Of Treatment Once a Day Treatment Plan OT Treatment Plan ADL Training,Functional Mobility,Patient/Family Education,Discharge Planning Other Treatment Recommendations and Next Standing ADL's Treatment Focus Discharge Recommendations OT Discharge Recommendations Home with 08/05 Assist Available,Outpatient PT Home Equipment Needs plumber assistant, sock aid, BSC, dressing stick Transportation Needs at Discharge Private Vehicle
--- NOTE | 2023-12-22 13:00 | PT.IPTN ---
Current Diagnoses Unilateral primary osteoarthritis, right knee (12/21/23) Surgery Performed Operation Date: 12/21/23 10:45 Actual Procedures p Total Knee Arthroplasty - Robot(Right) - Lisandra Quigley MD Physical Therapy Treatment Note M2 PT-IP Current Condition Start: 12/22/23 13:07 Freq: NEEDED Status: Active Protocol: Document 12/22/23 09:45 AB (Rec: 12/22/23 13:27 AB [id number]) Physical Therapy Current Condition Current Condition Evaluation Date 12/22/23 Treatment Diagnosis s/p R TKA; difficulty in walking Onset Date 12/21/23 M3 PT-IP Subjective Start: 12/22/23 13:07 Freq: NEEDED Status: Active Protocol: Document 12/22/23 13:32 TS (Rec: 12/22/23 13:48 TS [id number]) Subjective Physical Therapy Visit Type Type Treatment Note Visit Start Time 13:00 Visit Stop Time 13:28 Notes Family in room Number of SUPPLY CLERK Visits 1 Physical Therapy Visit Comments Patient Comments Pt found resting in chair, is agreeable to PT. Therapy Pain Assessment Pain When Pain Assessed At Rest Pain Present Pain Present Pain Reported Location Left Knee Pain Management Techniques Apply Cold,Distraction, Modification of Treatment,Re- positioning,Timing of Activity with Medications M4 PT-IP Mobility and Gait Start: 12/22/23 13:07 Freq: NEEDED Status: Active Protocol: Document 12/22/23 13:32 TS (Rec: 12/22/23 13:48 TS [id number]) PT-Transfer Assessment Sit to and From Stand Sit to and from Stand Minimal Assistance,1 Person Assistance,Use of Upper Extremities Equipment Transfer Assistive Device Gait Belt,Front Wheeled Walker Orthotic/Prosthetic Devices or Brace: No Comments Mobility Comments BP in sitting 106/50 prior to mobility. spouse was instructed in and performed donning of gait belt. STS from chair with Hamida from spouse and use of FWW. BP in standing 110/66, pt reported some dizziness. She ambulated in hallway ~150'CGA from spouse with use of FWW with a step to gait, she progressed to a step thru gait. She performed steps x3 ascending/descending with B handrails and CGA from spouse. She ambulated back to room and was left in chair with family in room, all needs met. Gait Assessment Gait Gait Assistance Required: Contact Guard Assist,1 Person Assist Distance (Feet) 150 Able to Maintain Weight Bearing Status Yes During Gait Assistive Devices Assistive Device Gait Belt,Front Wheeled Walker Orthotic/Prosthetic Devices or Brace: No Gait Deviations General Gait Pattern Antalgic,Decreased Stride Length,Decreased Feet Clearance,Step-to Gait Factors Limiting Gait Function Factors Limiting Gait Function Decreased Activity Tolerance, Decreased Strength,Difficulty Following Directions,Limited Range of Motion,Pain,Poor Balance,Poor Safety Awareness Comments Gait Comments See mobility comments Stair Climbing Assessment Evaluation Level of Assist On Stairs Contact Guard Assistance,1 Person Assistance Devices Stair Climbing Assistive Devices Left Railing,Right Railing Technique/Endurance Stair Climbing Direction Ascend and Descend Stair Climbing Technique Step to Step Number of Steps Climbed 3 Comments Stair Climbing Comments See mobility comments PT-Balance Assessment Sitting Balance and Reactions Static Sitting Balance Ability Good Dynamic Sitting Balance Ability Good Standing Balance and Reactions Static Standing Balance Ability Fair Dynamic Standing Balance Ability Fair Device Used FWW M5 PT-IP Objective Assessments Start: 12/22/23 13:07 Freq: NEEDED Status: Active Protocol: Document 12/22/23 09:45 AB (Rec: 12/22/23 13:27 AB [id number]) Orientation Orientation/Cognition Level of Alertness Alert Orientation Name,Place,Situation Language Function Ability Hard of Hearing Safety Awareness Decreased Safety Awareness Memory Description Short Term Impaired Gross Range of Motion Lower Extremity ROM Assessment Right Impaired Impairments R knee flexion: 40 deg Strength Lower Extremity Strength Assessment Right Impaired Hip 3+/5 Knee 3+/5 Muscle Tone Muscle Tone WNL Yes M6 PT-IP Treatment Start: 12/22/23 13:07 Freq: NEEDED Status: Active Protocol: Document 12/22/23 13:32 TS (Rec: 12/22/23 13:48 [id number]) Physical Therapy Treatment Education Education Provided Precautions,Weight Bearing Status,Post-Op Packet,Safety M7 PT-IP Assessment and Plan Start: 12/22/23 13:07 Freq: NEEDED Status: Active Protocol: Document 12/22/23 13:32 TS (Rec: 12/22/23 13:48 [id number]) PT Summary Assessment and Plan Potential Rehabilitation Potential Fair Summary Impairments Pain,ROM,Strength,Balance, Coordination,Sensation,Tone, Cognition,Bed Mobility, Transfers,Gait,Activity Tolerance Progress Towards Goals Progressing Toward Goals Assessment Summary Megan is making good progress with her mobility. She is Hamida for STS with use of FWW from lower surface of chair. She progressed her gait to ~150'SBA with FWW. Initially step to gait and then progressed to step thru gait. She progressed to stairs x3 with B handrail assist, pt had no buckling or LOB, she had some difficulty descending stairs. Spouse was instructed in and performed donning of gait belt, STS, gait and stair training. PT is recommending pt return home with 24/ assist and outpatient PT. Goals Bed Mobility Goal Independent Transfer Goal Independent,Front Wheeled Walker Gait Goal Independent,Front Wheel Walker Gait Distance 250 Other Goals up/down 5 steps R rail ascending SBA Days to Meet Goals 5 Frequency of Treatment Frequency Of Treatment Twice a Day Treatment Plan Physical Therapy Treatment Plan Bed Mobility Training,Transfer Training,Gait Training, Therapeutic Exercise,Balance Retraining,Post Op Education, Discharge Planning,Hot or Cold Pack,Neuromuscular Re-ed, Coordination Retraining,Manual Therapy Weight Bearing Status Weight Bearing Status Weight Bear as Tolerated Allowed Weight Bearing Amount (enter % RLE WBAT or #) (%) Recommendations To Nursing Amount of Assist Needed 1 Person Assist Discharge Recommendations PT Discharge Recommendations Home with 24/7 Assist Available,Home Health Transportation Needs at Discharge Private Vehicle
== END 2023-12-22 14:29 | disposition home or self-care (01) ==
LOC: OR 08:26 → AC 08:28
PROVIDERS: Student in an Organized Health Care Education/Training Program; PCP Nurse Practitioner Family; Referring Provider Orthopaedic Surgery; Visit Provider Orthopaedic Surgery
PROC: 0SRC0JZ Replacement of Right Knee Joint with Synthetic Substitute, Open Approach (ICD-10-PCS; CPT 27447; principal; 2023-12-21 10:45)
DX: M17.11 Unilateral primary osteoarthritis, right knee (principal)
CPT/HCPCS: 27447; 73560; 80048; 85014; 85018; 85025; 85610; 97116; 97162; 97165; 97530; 97535; C1776; C9290; J0171; J0690; J1100; J1170; J2405; J2704; J3010; J3410